=== PATIENT | female | born 1970 | race Caucasian/White ===

== ENCOUNTER 2020-02-01 15:25 | Outpatient (CLI) | payer OTHER, SELFPAY ==
[2020-02-01 17:53] LABS: Free T4 Free Thyroxine 1.26 ng/mL (0.78-2.19)
[2020-02-04 06:08] LABS: Vitamin D 1,25 (OH)2 Total 46 pg/mL (18-72); Vitamin D2 1,25 (OH)2 <8 pg/mL; Vitamin D3 1,25 (OH)2 46 pg/mL
[2020-02-04 13:12] LABS: Triiodothyronine T3 Free 2.5 pg/mL (2.3-4.2)
[2020-02-04 16:32] LABS: Testosterone Free 5.1 pg/mL (0.1-6.4); Testosterone Total 37 ng/dL (2-45)
[2020-02-06 11:43] LABS: T3 Reverse 22 ng/dL (8-25)
== END 2020-02-01 15:26 | disposition home or self-care (01) ==
LOC: ANHBWCLAB 15:29
PROVIDERS: PCP Family Medicine; Visit Provider Family Medicine
DX: R79.89 Other specified abnormal findings of blood chemistry (principal); G25.81 Restless legs syndrome; L68.0 Hirsutism; E03.9 Hypothyroidism, unspecified; E07.9 Disorder of thyroid, unspecified; E28.2 Polycystic ovarian syndrome; Z79.899 Other long term (current) drug therapy; N99.89 Other postprocedural complications and disorders of genitourinary system; Z98.51 Tubal ligation status
CPT/HCPCS: 36415; 82652; 84402; 84403; 84439; 84443; 84481; 84482

== ENCOUNTER 2020-03-29 11:22 | Outpatient (CLI) | payer OTHER, SELFPAY ==
[2020-03-29 20:06] LABS: Free T4 Free Thyroxine 1.79 ng/mL (0.78-2.19); Vitamin D 25 Hydroxy 25.1 ng/mL
[2020-04-01 11:19] LABS: T3 Reverse 26 ng/dL (8-25)
== END 2020-03-29 11:23 | disposition home or self-care (01) ==
LOC: ANHBWCLAB 11:23
PROVIDERS: PCP Family Medicine; Visit Provider Family Medicine
DX: E53.8 Deficiency of other specified B group vitamins (principal); E05.90 Thyrotoxicosis, unspecified without thyrotoxic crisis or storm; R79.89 Other specified abnormal findings of blood chemistry; G25.81 Restless legs syndrome
CPT/HCPCS: 36415; 82306; 82607; 82746; 84439; 84443; 84481; 84482

== ENCOUNTER 2020-08-29 14:41 | Emergency (ER) | payer OTHER, SELFPAY ==
--- NOTE | ~2020-08-29 | XR_ITS ---
EXAMINATION: XR chest 2V DATE: 08/29/2020 15:45 INDICATION: Chest pain. TECHNIQUE: frontal and lateral views of the chest were obtained. COMPARISON: Chest radiograph dated 01/20/2019 FINDINGS: The lungs remain clear with no focal airspace opacities, pulmonary edema, pleural effusion or pneumot horax. The cardiomediastinal silhouette is normal. Moderate thoracic spondylosis. IMPRESSION: 1. No acute cardiopulmonary disease. Reviewed, dictated and finalized at location A.
--- NOTE | 2020-08-29 14:53 | ECG_ITS ---
Measurements Intervals [place] Rate: 79 P: 40 GA: 173 QRS: 29 QRSD: 94 T: 22 QT: 356 QTc: 410 Interpretive Statements SINUS RHYTHM NONSPECIFIC T-WAVE ABNORMALITY- ANT/INF LEADS BASELINE WANDER- I, II BORDERLINE ECG Electronically Signed On 08-29-2020 15:01:06 CDT by Valentino Mensah D.O.
[2020-08-29 15:14] VITALS: BP 129/86; PULSE 77; RESP 14; TEMP 36.8; O2SAT 100
[2020-08-29] MEDS: ASPIRIN 81 MG CHEWABLE TABLET 324 MG PO (15:33)
[2020-08-29] MEDS: MECLIZINE HCL 25 MG TABLET PO (16:26)
[2020-08-29 16:41] LABS: Basophils Absolute Auto 0.1 K/mm3 (0.0-0.1); Basophils Percent Auto 0.6 % (0.2-1.2); Eosinophils Absolute Auto 0.2 K/mm3 (0-0.3); Eosinophils Percent Auto 2.3 % (0-4.4); Hemoglobin 13.8 g/dL (12.0-15.0); Immature Granulocyte Absolute 0.03 K/mm3 (0.00-0.031); Immature Granulocyte Percent A 0.4 % (0-0.5); Lymphocytes Absolute Auto 2.93 K/mm3 (0.9-3.2); Lymphocytes Percent Auto 37.9 % (18.3-44.2); Mean Corpuscular HGB Conc 32.9 g/dl (32-36); Mean Corpuscular Hemoglobin 30.7 pg (26-34); Mean Corpuscular Volume 93.5 fl (80-100); Mean Platelet Volume 9.8 fl (7.4-10.4); Monocytes Absolute Auto 0.6 K/mm3 (0.1-0.6); Monocytes Percent Auto 8.2 % (2.6-8.5); Neutrophils Absolute Auto 3.9 K/mm3 (1.3-6.7); Neutrophils Percent Auto 50.6 % (45.5-73.1); Platelet Count Result 246 k/mm3 (150-375); Red Blood Count 4.49 M/mm3 (4.2-5.4); Red Cell Distribution Width 12.6 % (11.5-14.5); White Blood Count 7.7 K/mm3 (4.5-10.0)
[2020-08-29 16:45] VITALS: BP 153/105; PULSE 76; RESP 18; O2SAT 96
[2020-08-29 16:53] LABS: Prothrombin Time 13.3 Seconds (11.1-14.7)
[2020-08-29 16:55] LABS: Partial Thromboplastin Time 28.4 SECONDS (22.3-36.8)
[2020-08-29 17:07] LABS: Anion Gap 10 mmol/L (8-16); Blood Urea Nitrogen 8 mg/dL (7-17); Calcium 9.6 mg/dL (8.4-10.2); Carbon Dioxide 22 mmol/L (22-30); Chloride 109 mmol/L (98-107); Estimated CRCL calculation 72 ml/min; Estimated Glomerular Filt Rate 52; Glucose 84 mg/dL (65-105); Potassium 4.1 mmol/L (3.4-5.0); Sodium 141 mmol/L (137-145)
[2020-08-29 17:17] LABS: Troponin I < 0.012 ng/mL (0.000-0.034)
--- NOTE | 2020-08-29 17:25 | ED.CHESTPAIN ---
HPI - Chest Pain General Chief Complaint: Chest Pain Stated Complaint: CP, hx aortic aneurism Time Seen by Provider: 08/29/20 14:57 History of Present Illness HPI narrative: Patient is a 50-year-old female who presents ER with chest pain. Pressure center chest. No runny nose or sore throat or productive cough. No dyspnea. Has history of DVT resulting in PE back in February 2020. She has been on apixaban since then. Patient had negative cardiac stress test 3 weeks ago. No trauma. No fevers or chills or sweats. Cannot identify any aggravating or alleviating factors. Pain began this morning. Related Data Allergies Allergy/AdvReac Type Severity Reaction Status Date / Time No Known Allergies Allergy Verified 08/29/20 13:35 Review of Systems Review of Systems: All systems reviewed & are unremarkable except as noted in HPI and below Constitutional: Constitutional: Denies chills, Denies fever(s) and Denies weakness ENT: Denies nasal congestion and Denies sore throat Cardiovascular: Cardiovascular: Reports chest pain, Denies rapid heart rate and Denies radiating jaw, neck or arm pain Respiratory: Respiratory: Denies cough, Denies dyspnea and Denies wheezing Gastrointestinal: Gastrointestinal: Denies nausea and Denies vomiting PMFSH Past Medical History Medical History Anxiety Former smoker Headache, migraine Hypothyroid 04/01/2020 reverse T3 to high Other termite renewal inspector (current) drug therapy Pulmonary embolism Surgical History Surgical History H/O resection of rectum H/O thyroidectomy Family History Family History Mother Cerebrovascular accident DVT (deep venous thrombosis) Social History Social History Smoking packs per day: 1 Smoking cigarettes per day: 20.0 Years smoked: 19 Smoking pack-years: 19.00 Smoking status: Former smoker Tobacco type: cigarettes Alcohol intake: current Drinks per week: 0 Substance use: never Exam Narrative: Exam Narrative: GENERAL: Well-appearing, well-nourished, and in no acute distress. HEAD: Normocephalic, atraumatic. EYES: PERRL and EOMI. ENT: Mucous membranes moist. CHEST: Clear to auscultation. No respiratory distress. HEART: Regular rate and rhythm. Normal peripheral pulses. ABDOMEN: Soft, nontender, nondistended. EXTREMITIES: Normal range of motion. No edema. SKIN: Warm, dry, no rash. NEURO: Alert and oriented x3. Course Course Emergency Course: Patient resting comfortably. Informed of results. Is not felt to be PE or cardiac related. May be related to some anxiety that patient has. Vital Signs Vital signs: Vital Signs Temperature 98.2 F 08/29/20 15:14 Pulse Rate 77 08/29/20 15:14 Respiratory Rate 14 08/29/20 15:14 Blood Pressure 129/86 08/29/20 15:14 Pulse Oximetry 100 08/29/20 15:14 Temperature 98.2 F 08/29/20 15:14 Pulse Rate 76 08/29/20 16:45 Respiratory Rate 18 08/29/20 16:45 Blood Pressure 153/105 H 08/29/20 16:45 Pulse Oximetry 96 08/29/20 16:45 MDM - Chest Pain Lab Data Result diagrams: 08/29/20 16:31 08/29/20 16:31 Labs: Lab Results 08/29/20 08/29/20 08/29/20 Range/Units 16:31 16:31 16:31 WBC 7.7 (4.5-10.0) K/mm3 RBC 4.49 (4.2-5.4) M/mm3 Hgb 13.8 (12.0-15.0) g/dL Hct 42.0 (37.0-47.0) % MCV 93.5 (80-100) fl MCH 30.7 (26-34) pg MCHC 32.9 (32-36) g/dl RDW 12.6 (11.5-14.5) % Plt Count 246 (150-375) k/mm3 MPV 9.8 (7.4-10.4) fl Immature Gran % (Auto) 0.4 (0-0.5) % Neut % (Auto) 50.6 (45.5-73.1) % Lymph % (Auto) 37.9 (18.3-44.2) % [place] % (Auto) 8.2 (2.6-8.5) % Eos % (Auto) 2.3 (0-4.4) % Baso % (Auto) 0.6 (0.2-1.2) % Lymph # (Auto) 2.93 (0.9-3.2) K/mm3
== END 2020-08-29 17:41 | disposition home or self-care (01) ==
PROVIDERS: Emergency Provider Emergency Medicine; PCP Family Medicine
DX: R07.9 Chest pain, unspecified (principal); E03.9 Hypothyroidism, unspecified; Z87.891 Personal history of nicotine dependence; Z79.01 Long term (current) use of anticoagulants; Z86.711 Personal history of pulmonary embolism
CPT/HCPCS: 36415; 71046; 80048; 84484; 85025; 85610; 85730; 93005; 99284; A9270

== ENCOUNTER 2020-12-01 08:48 | Outpatient (CLI) | payer OTHER, SELFPAY ==
--- NOTE | ~2020-12-01 | MM_ITS ---
EXAMINATION: MM screening randy BI w areli HISTORY: Screening TECHNIQUE: Craniocaudal and mediolateral oblique 3-D tomosynthesis images were obtained and synthetic 2-D images were generated. CAD analysis was submitted and interpreted. COMPARISON: No prior mammogram is available for comparison at this institution BREAST PARENCHYMAL COMPOSITION: The breasts are heterogenously dense, which may obscure small masses. FINDINGS: There are multiple bilateral breast nodules scattered throughout both breasts. Many of thes e are obscured by fibroglandular tissue. No suspicious calcifications or architectural distortion. IMPRESSION: 1. Multiple bilateral breast nodules scattered throughout both breasts. 2. Additional mammographic views and possible breast ultrasound are recommended. BI-RADS Category 0: Incomplete: Needs additional imaging evaluation. Reviewed, dictated and finalized at location A. IMPRESSION: 1. Multiple bilateral breast nodules scattered throughout both breasts. 2. Additional mammographic views and possible breast ultrasound are recommended . BI-RADS Category 0: Incomplete: Needs additional imaging evaluation.
== END 2020-12-01 08:49 | disposition home or self-care (01) ==
LOC: ANHIMG 08:51
PROVIDERS: Visit Provider Emergency Medicine
DX: Z12.31 Encounter for screening mammogram for malignant neoplasm of breast (principal); R92.8 Other abnormal and inconclusive findings on diagnostic imaging of breast
CPT/HCPCS: 77063; 77067

== ENCOUNTER 2021-01-30 09:06 | Outpatient (CLI) | payer OTHER, SELFPAY ==
--- NOTE | ~2021-01-30 | US_ITS ---
EXAMINATION: US abdomen complete EXAM DATE: 01/30/2021 09:41 INDICATION: Liver disease. TECHNIQUE: Multiple grayscale and Doppler images of the complete abdomen were obtained (by a technolo gist who performed the scan) and subsequently reviewed. There is no prior study for comparison. FINDINGS: The abdominal aorta is normal in caliber. Visualized portion IVC is patent. The pancreatic head a nd body are normal in appearance. The pancreatic tail is not visualized. There is echogenic liver parenchyma with poor penetration, hepatic steatosis. There are no focal david er lesions identified. There is no evidence of intrahepatic biliary duct dilation. Portal venous f low was seen in the hepatopedal, normal direction and has normal Doppler waveform. Common bile duct measures 8 mm, which is normal. The gallbladder fossa is unremarkable. Right kidney: There is normal contour and echogenicity. It measures 11.3 x 6.2 x 5.3 centimeters. There are no focal renal lesions identified. There is no hydronephrosis. Left kidney: There is normal contour and echogenicity. It measures 11.3 x 5.7 x 5.8 centimeters. T here are no focal renal lesions identified. There is no hydronephrosis. The spleen measures 10.7 centimeters and is morphologically normal. IMPRESSION: 1. Hepatic steatosis. Reviewed, dictated and finalized at location B. RITY ASSISTANT IMPRESSION: 1. Hepatic steatosis.
== END 2021-01-30 09:07 | disposition home or self-care (01) ==
LOC: ANHIMG 09:08
PROVIDERS: PCP Emergency Medicine; Visit Provider Emergency Medicine
DX: K76.0 Fatty (change of) liver, not elsewhere classified (principal)
CPT/HCPCS: 76700

== ENCOUNTER 2023-06-04 16:02 | Outpatient (CLI) | payer OTHER, SELFPAY ==
--- NOTE | ~2023-06-04 | MM_ITS ---
EXAMINATION: MM screening randy BI w areli HISTORY: Screening TECHNIQUE: Craniocaudal and mediolateral oblique 3-D tomosynthesis images were obtained and synthetic 2-D images were generated. CAD analysis was submitted and interpreted. COMPARISON: No prior mammogram is available for comparison at this institution. BREAST PARENCHYMAL COMPOSITION: Not dense: There are scattered areas of fibroglandular density. FINDINGS: There are developing bilateral masses in the upper outer quadrant of both breasts. There ar e no suspicious calcifications or architectural distortion. IMPRESSION: 1. Developing bilateral breast masses. 2. Additional mammographic views and possible breast ultrasound are recommended. BI-RADS Category 0: Incomplete: Needs additional imaging evaluation. Reviewed, dictated and finalized at location B. IMPRESSION: 1. Developing bilateral breast masses. 2. Additional mammographic views and possible breast ultrasound are recommended . BI-RADS Category 0: Incomplete: Needs additional imaging evaluation.
== END 2023-06-04 16:03 | disposition home or self-care (01) ==
PROVIDERS: PCP Family Medicine; Visit Provider Family Medicine
DX: Z12.31 Encounter for screening mammogram for malignant neoplasm of breast (principal); R92.8 Other abnormal and inconclusive findings on diagnostic imaging of breast
CPT/HCPCS: 77063; 77067

== ENCOUNTER 2023-06-20 12:36 | Outpatient (CLI) | payer OTHER, SELFPAY ==
--- NOTE | ~2023-06-20 | MMUS_ITS ---
EXAMINATION: MM diagnostic randy BI w areli, US breast BI limited HISTORY: Developing bilateral breast masses reported on June 04, 2023 screening mammogram TECHNIQUE: Additional 3-D tomosynthesis images of both breasts were performed and synthetic 2-D image s were generated. CAD analysis was submitted and interpreted. High resolution bilateral upper outer a nd lower-outer quadrant breast ultrasound was performed. COMPARISON: June 04, 2023 bilateral screening mammogram FINDINGS: MAMMOGRAPHIC FINDINGS: Multiple bilateral scattered low-density circumscribed opacities in one larger approximately 2.4 cm u pper outer quadrant left breast opacity is suggested primarily in the outer quadrants of the breasts. These are low-density and circumscribed, most likely cysts. Biopsy marker is noted in the upper outer quadrant of the right breast. There is a history of prior b enign right breast biopsy. No suspicious mass or architectural distortion, malignant calcification and skin thickening or retrac tion is evident. ULTRASOUND: There are scattered right breast cysts, the largest situated at 8:00 7 cm from the nipple measuring u p to 6.5 mm. There are scattered left breast cysts as well, the largest at 1:00 6 cm from the nipple, measuring up to 2.7 cm. There is a circumscribed hyperechoic 4.7 x 8.5 mm lesion in the left breast at 12:00 3 cm from the ni pple consistent with benign lipoma. No suspicious mass or shadowing is detected. IMPRESSION: 1. Benign findings 2. Routine annual mammographic screening is recommended BI-RADS Category 2: Benign finding(s). Reviewed, dictated and finalized at location A. IMPRESSION: 1. Benign findings 2. Routine annual mammographic screening is recommended BI-RADS Category 2: Benign finding(s).
== END 2023-06-20 12:37 | disposition home or self-care (01) ==
PROVIDERS: PCP Family Medicine; Visit Provider Family Medicine
DX: R92.8 Other abnormal and inconclusive findings on diagnostic imaging of breast (principal)
CPT/HCPCS: 76642; 77062; 77066; G0279

== ENCOUNTER 2024-01-08 10:28 | Emergency (ER) | payer OTHER, SELFPAY ==
--- NOTE | ~2024-01-08 | US_ITS ---
US transvaginal Ordering provider: Josephine Lloyd APRN History: . vaginal bleeding . Comparison: None. Technique: Transabdominal and endovaginal ultrasound of the pelvis (Doppler ultrasound interrogation techniques used as needed for this exam.) FINDINGS: CERVIX: Nabothian cysts UTERUS: Measures 8.7x4x4.5 cm in length which is within normal limits and is anteverted. No myometri al masses. ENDOMETRIUM: Normal in thickness measuring 9 mm. heterogenous area in the endometrium in the lower s egment. CUL DE SAC: No free fluid. RIGHT OVARY: not seen. LEFT OVARY: not seen. ADNEXA: Normal. No mass. IMPRESSION: Nabothian cysts, highly suggestive endometrial polyp. further evaluation advised.endometrial Ca shou ld be considered. Otherwise, normal pelvic ultrasound. Reviewed, dictated and finalized at location A. MIXER IMPRESSION: Nabothian cysts, highly suggestive endometrial polyp. further evaluation advis ed.endometrial Ca should be considered. Otherwise, normal pelvic ultrasound.
[2024-01-08 10:30] VITALS: BP 149/99; PULSE 86; RESP 16; TEMP 36.6; O2SAT 100
[2024-01-08 12:34] LABS: Basophils Absolute Auto 0.1 K/mm3 (0.0-0.1); Eosinophils Absolute Auto 0.1 K/mm3 (0-0.3); Eosinophils Percent Auto 1.8 % (0-4.4); Hematocrit 41.1 % (37.0-47.0); Hemoglobin 14.6 g/dL (12.0-15.0); Immature Granulocyte Absolute 0.03 K/mm3 (0.00-0.031); Immature Granulocyte Percent A 0.4 % (0-0.5); Immature Platelet Fraction Pct 3.3 % (0.9-11.2); Mean Corpuscular HGB Conc 35.5 g/dl (32-36); Mean Corpuscular Hemoglobin 31.8 pg (26-34); Mean Corpuscular Volume 89.5 fl (80-100); Mean Platelet Volume 9.7 fl (7.4-10.4); Monocytes Absolute Auto 0.4 K/mm3 (0.1-0.6); Monocytes Percent Auto 5.2 % (2.6-8.5); Neutrophils Absolute Auto 4.3 K/mm3 (1.3-6.7); Neutrophils Percent Auto 60.6 % (45.5-73.1); Platelet Count Result 140 k/mm3 (150-375); Red Blood Count 4.59 M/mm3 (4.2-5.4); Red Cell Distribution Width 13.4 % (11.5-14.5); White Blood Count 7.1 K/mm3 (4.5-10.0)
--- NOTE | 2024-01-08 12:40 | ED.FEMALEGU ---
HPI - Female Genitourinary General Chief complaint: Vaginal Bleeding <Josephine Lloyd APRN - Last Filed: 01/08/24 12:42> Stated complaint: vaginal bleeding <Josephine Lloyd APRN - Last Filed: 01/08/24 12:42> Time Seen by Provider: 01/08/24 12:35 <Josephine Lloyd APRN - Last Filed: 01/08/24 12:42> Focused HPI: Patient is a 53-year-old female who presents to the ER with vaginal bleeding. She reports she is postmenopausal and has not had any vaginal bleeding since 2021. Patient reports she thought she had a yeast infection couple of days ago so she tried to treat with Monistat but it did not help relieve her symptoms. She reports this morning she was blotting her vaginal area and it was just blood. patient reports she called her primary care provider who advised her to come into the ER for evaluation. She denies any shortness of breath, lower extremity swelling, or chest pain. Patient does endorse lower abdominal cramping. She reports she has a history of fatty liver disease and type 2 diabetes. Patient reports she still has all of her female organs. GENERAL: Well-appearing, well-nourished, and in no acute distress. HEAD: Normocephalic, atraumatic. CHEST: Clear to auscultation. ?No respiratory distress. HEART: Regular rate and rhythm.? NEURO: ?Alert and oriented x3. Patient screened in triage and initial orders placed.? ?Additional care and disposition to be based upon?diagnostic testing and treatment. <Josephine Lloyd APRN - Last Filed: 01/08/24 12:42> Source: patient <Amadou Worthington PA-C - Last Filed: 01/09/24 01:41> Mode of arrival: ambulatory <PAZ Hernandez Last Filed: 01/09/24 01:41> Limitations: no limitations <PAZ Hernandez Last Filed: 01/09/24 01:41> History of Present Illness HPI Narrative: Agree triage note above <PAZ Hernandez Last Filed: 01/09/24 01:41> Related Data Allergies/Adverse reactions: Allergies Allergy/AdvReac Type Severity Reaction Status Date / Time No Known Allergies Allergy Verified 09/19/20 10:05 <Josephine Lloyd APRN - Last Filed: 01/08/24 12:42> Review of Systems Review of Systems: All systems as dictated in HPI <Amadou Worthington PA-C - Last Filed: 01/09/24 01:41> PMFSH Past Medical History Medical History: Medical History Anxiety Former smoker Headache, migraine Hypothyroid 04/01/2020 reverse T3 to high Other long distance operator (current) drug therapy Pulmonary embolism <Josephine Lloyd APRN - Last Filed: 01/08/24 12:42> Surgical History Surgical History: Surgical History H/O resection of rectum H/O thyroidectomy <Josephine Lloyd APRN - Last Filed: 01/08/24 12:42> Family History Family History: Family History Mother Cerebrovascular accident DVT (deep venous thrombosis) <Josephine Lloyd APRN - Last Filed: 01/08/24 12:42> Social History Social History: Social History Smoking packs per day: 1 Smoking cigarettes per day: 20.0 Years smoked: 19 Smoking pack-years: 19.00 Smoking status: Former smoker Tobacco type: cigarettes Alcohol intake: current Drinks per week: 0 Substance use: never <Josephine Lloyd APRN - Last Filed: 01/08/24 12:42> Exam Narrative: GENERAL: Well-appearing, well-nourished, and in no acute distress. HEAD: Normocephalic, atraumatic. EYES: PERRLA and EOMI. ENT: Nares clear, no rhinorrhea or epistaxis. Mucous membranes moist. Oropharynx without tonsillar hypertrophy exudate or other lesions. NECK: Supple. No adenopathy or masses. CHEST: No respiratory distress. Clear to auscultation. No wheezes rales or rhonchi HEART: Regular rate and rhythm. No murmur heard. Normal peripheral pulses. ABDOMEN: Soft, nontender, nondistended, normal active bowel sounds. MSK: Normal range of motion. No edema. SKIN: Warm, dry, no rash. NEURO: Alert and oriented x4. No focal deficits. PSYCH: Normal mood and affect. <Amadou Worthington PA-C - Last Filed: 01/09/24 01:41> Course Consultations Consultation #1: Spoke with Dr. Liao. He will have the patient follow-up in clinic this week. <Amadou Worthington PA-C - Last Filed: 01/09/24 01:41> Vital Signs Vital signs: Vital Signs Temperature 97.8 F 01/08/24 10:30 Pulse Rate 86 01/08/24 10:30 Respiratory Rate 16 01/08/24 10:30 Blood Pressure 149/99 H 01/08/24 10:30 Pulse Oximetry 100 01/08/24 10:30 Oxygen Delivery Room Air 01/08/24 10:30 Temperature 97.8 F 01/08/24 10:30 Pulse Rate 77 01/08/24 16:17 Respiratory Rate 18 01/08/24 16:17 Blood Pressure 138/88 01/08/24 16:17 Pulse Oximetry 97 01/08/24 16:17 Oxygen Delivery Room Air 01/08/24 10:30 <Josephine Lloyd, ALESSANDRA - Last Filed: 01/08/24 12:42> Vital Signs Temperature 97.8 F 01/08/24 10:30 Pulse Rate 86 01/08/24 10:30 Respiratory Rate 16 01/08/24 10:30 Blood Pressure 149/99 H 01/08/24 10:30 Pulse Oximetry 100 01/08/24 10:30 Oxygen Delivery Room Air 01/08/24 10:30 Temperature 97.8 F 01/08/24 10:30 Pulse Rate 77 01/08/24 16:17 Respiratory Rate 18 01/08/24 16:17 Blood Pressure 138/88 01/08/24 16:17 Pulse Oximetry 97 01/08/24 16:17 Oxygen Delivery Room Air 01/08/24 10:30 <Amadou Worthington PA-C - Last Filed: 01/09/24 01:41> MDM - Female Genitourinary MDM Narrative Medical decision making narrative: This is a 53-year-old female who presents to the ED for chief complaint of vaginal bleeding. Vitals are normal. Patient is postmenopausal. Exam is benign overall. No abdominal tenderness. Lab work shows normal CBC. Coags are unremarkable. CMP shows elevated glucose but otherwise unremarkable. Urinalysis shows elevated specific gravity with protein and glucose present. There is 1+ leuk esterase, greater than 100 RBCs and 21-50 whites. She is not have any urinary symptoms to indicate a acute UTI. Culture pending. Transvaginal ultrasound: IMPRESSION: Nabothian cysts, highly suggestive endometrial polyp. further evaluation advised.endometrial Ca should be considered. Otherwise, normal pelvic ultrasound Was able to speak with Dr. Liao (OBGYN) but as the patient currently does not have any gynecological care. That he is aware of the workup and will follow-up with the patient this week. Patient will be discharged in stable condition. Supportive measures discussed and return precautions given. Patient is understanding and agreeable with plan for discharge with PCP/Gyne follow-up. <Amadou Worthington PA-C - Last Filed: 01/09/24 01:41> Lab Data Result diagrams: 01/08/24 12:22 01/08/24 12:22 <Josephine Lloyd APRN - Last Filed: 01/08/24 12:42> Labs: Lab Results 01/08/24 Range/Units 12:22 WBC 7.1 (4.5-10.0) K/mm3 RBC 4.59 (4.2-5.4) M/mm3 Hgb 14.6 (12.0-15.0) g/dL Hct 41.1 (37.0-47.0) % MCV 89.5 (80-100) fl MCH 31.8 (26-34) pg MCHC 35.5 (32-36) g/dl RDW 13.4 (11.5-14.5) % Plt Count 140 L (150-375) k/mm3 MPV 9.7 (7.4-10.4) fl Immature Gran % (Auto) 0.4 (0-0.5) % Neut % (Auto) 60.6 (45.5-73.1) % Lymph % (Auto) 31.0 (18.3-44.2) % [place] % (Auto) 5.2 (2.6-8.5) % Eos % (Auto) 1.8 (0-4.4) % Baso % (Auto) 1.0 (0.2-1.2) % Lymph # (Auto) 2.20 (0.9-3.2) K/mm3 [place] # (Auto) 0.4 (0.1-0.6) K/mm3 Eos # (Auto) 0.1 (0-0.3) K/mm3 Baso # (Auto) 0.1 (0.0-0.1) K/mm3 Abs Immat Gran (auto) 0.03 (0.00-0.031) K/mm3 Absolute Neuts (auto) 4.3 (1.3-6.7) K/mm3 Absolute Nucleated RBC 0.000 (0.0-0.012) K/mm3 Nucleated RBC % 0.0 (0.0-0.2) % % Immature Plt Fraction 3.3 (0.9-11.2) % PT 15.1 H (11.1-14.7) Seconds INR 1.1 APTT 29.9 (22.3-36.8) Seconds Sodium 136 L (137-145) mmol/L Potassium 4.1 (3.4-5.0) mmol/L Chloride 100 (98-107) mmol/L Carbon Dioxide 25 (22-30) mmol/L Anion Gap 11 (4-12) mmol/L BUN 10 (7-17) mg/dL Creatinine 0.90 (0.7-1.0) mg/dL Estim Creat Clear Calc Not Reportable Estimated GFR > 60 (59 - ) Glucose 300 H (65-110) mg/dL Calcium 9.4 (8.4-10.2) mg/dL Total Bilirubin 1.1 (0.2-1.3) mg/dL AST 116 H (14-36) U/L ALT 124 H (6-35) U/L Alkaline Phosphatase 86 (38-126) U/L Total Protein 9.0 H (6.3-8.2) g/dL Albumin 4.5 (3.5-5.1) g/dL Lipase 242 (23-300) U/L Urine Color Red H (Yellow) Urine Appearance Turbid H (Clear) Urine pH 5.5 (5.0-9.0) Ur Specific [place] 1.045 H (1.001-1.035) Urine Protein 2+ H (Negative) mg/dL Urine Glucose (UA) 3+ H (Negative) mg/dL Urine Ketones Negative (Negative) mg/dL Ur Blood (Man) 3+ H (Negative) Urine Nitrate Negative (Negative) Urine Bilirubin TNP Urine Urobilinogen 0.2 (<2.0) mg/dL Add Ur Microanalysis Reviewed Leukocyte Esterase Rfl 1+ H (Negative) LORRI/UL Urine RBC >100 H (0-2) /hpf Urine WBC 21-50 H (0-3) /hpf Ur Squamous Epith Cells Moderate (Few) /hpf Urine Bacteria None seen /hpf Urine Casts 0-2 <Josephine Lloyd, ZONING ADMINISTRATOR - Last Filed: 01/08/24 12:42> Lab Results 01/08/24 Range/Units 12:22 WBC 7.1 (4.5-10.0) K/mm3 RBC 4.59 (4.2-5.4) M/mm3 Hgb 14.6 (12.0-15.0) g/dL Hct 41.1 (37.0-47.0) % MCV 89.5 (80-100) fl MCH 31.8 (26-34) pg MCHC 35.5 (32-36) g/dl RDW 13.4 (11.5-14.5) % Plt Count 140 L (150-375) k/mm3 MPV 9.7 (7.4-10.4) fl Immature Gran % (Auto) 0.4 (0-0.5) % Neut % (Auto) 60.6 (45.5-73.1) % Lymph % (Auto) 31.0 (18.3-44.2) % [place] % (Auto) 5.2 (2.6-8.5) % Eos % (Auto) 1.8 (0-4.4) % Baso % (Auto) 1.0 (0.2-1.2) % Lymph # (Auto) 2.20 (0.9-3.2) K/mm3 [place] # (Auto) 0.4 (0.1-0.6) K/mm3 Eos # (Auto) 0.1 (0-0.3) K/mm3 Baso # (Auto) 0.1 (0.0-0.1) K/mm3 Abs Immat Gran (auto) 0.03 (0.00-0.031) K/mm3 Absolute Neuts (auto) 4.3 (1.3-6.7) K/mm3 Absolute Nucleated RBC 0.000 (0.0-0.012) K/mm3 Nucleated RBC % 0.0 (0.0-0.2) % % Immature Plt Fraction 3.3 (0.9-11.2) % PT 15.1 H (11.1-14.7) Seconds INR 1.1 APTT 29.9 (22.3-36.8) Seconds Sodium 136 L (137-145) mmol/L Potassium 4.1 (3.4-5.0) mmol/L Chloride 100 (98-107) mmol/L Carbon Dioxide 25 (22-30) mmol/L Anion Gap 11 (4-12) mmol/L BUN 10 (7-17) mg/dL Creatinine 0.90 (0.7-1.0) mg/dL Estim Creat Clear Calc Not Reportable Estimated GFR > 60 (59 - ) Glucose 300 H (65-110) mg/dL Calcium 9.4 (8.4-10.2) mg/dL Total Bilirubin 1.1 (0.2-1.3) mg/dL AST 116 H (14-36) U/L ALT 124 H (6-35) U/L Alkaline Phosphatase 86 (38-126) U/L Total Protein 9.0 H (6.3-8.2) g/dL Albumin 4.5 (3.5-5.1) g/dL Lipase 242 (23-300) U/L Urine Color Red H (Yellow) Urine Appearance Turbid H (Clear) Urine pH 5.5 (5.0-9.0) Ur Specific [place] 1.045 H (1.001-1.035) Urine Protein 2+ H (Negative) mg/dL Urine Glucose (UA) 3+ H (Negative) mg/dL Urine Ketones Negative (Negative) mg/dL Ur Blood (Man) 3+ H (Negative) Urine Nitrate Negative (Negative) Urine Bilirubin TNP Urine Urobilinogen 0.2 (<2.0) mg/dL Add Ur Microanalysis Reviewed Leukocyte Esterase Rfl 1+ H (Negative) LORRI/UL Urine RBC >100 H (0-2) /hpf Urine WBC 21-50 H (0-3) /hpf Ur Squamous Epith Cells Moderate (Few) /hpf Urine Bacteria None seen /hpf Urine Casts 0-2 <Amadou Worthington PA-C - Last Filed: 01/09/24 01:41> Discharge Plan Discharge Clinical Impression: Abnormal vaginal bleeding, Abnormal urinalysis <Josephine Lloyd APRN - Last Filed: 01/08/24 12:42> Patient Disposition: Home, Self-Care <Josephine Lloyd APRN - Last Filed: 01/08/24 12:42> Condition: Stable <Josephine Lloyd APRN - Last Filed: 01/08/24 12:42> Instructions: Antibiotic Form <Josephine Lloyd APRN - Last Filed: 01/08/24 12:42> Additional Instructions: Your exam and imaging today are concerning for cysts and polyps that are causing the bleeding. There is also a possibility of endometrial cancer. This needs to be followed closely gynecology and clinic. Return to the ER if you have bleeding greater than 2 pads per hour. If you have any new or worsening symptoms please return to the ER for further evaluation. <Josephine Lloyd APRN - Last Filed: 01/08/24 12:42> Prescriptions: No Action losartan 25 mg tablet 25 mg PO DAILY Qty: 90 1RF Eliquis 5 mg tablet 5 mg PO BID Qty: 180 1RF topiramate [Topamax] 50 mg tablet 50 mg PO TID Qty: 270 1RF levothyroxine [Synthroid] 150 mcg tablet 150 mcg PO DAILY Qty: 90 1RF rizatriptan [Maxalt] 10 mg tablet 10 mg PO ONCE Qty: 90 1RF alprazolam 0.25 mg tablet 0.25 mg PO DAILY PRN (Reason: anxiety) Qty: 30 0RF <Josephine Lloyd APRN - Last Filed: 01/08/24 12:42> Follow-up/Referrals: Arturo Liao MD [Physician] - [facility],MD Carmelo [Primary Care Provider] - <Josephine Lloyd APRN - Last Filed: 01/08/24 12:42> Time of Disposition: 18:04 <Josephine Lloyd APRN - Last Filed: 01/08/24 12:42> 18:04 <Amadou Worthington PA-C - Last Filed: 01/09/24 01:41>
[2024-01-08 12:41] LABS: Alanine Aminotransferase 124 U/L (6-35); Albumin Level 4.5 g/dL (3.5-5.1); Alkaline Phosphatase 86 U/L (38-126); Anion Gap 11 mmol/L (4-12); Aspartate Amino Transferase 116 U/L (14-36); Bilirubin,Total 1.1 mg/dL (0.2-1.3); Blood Urea Nitrogen 10 mg/dL (7-17); Calcium 9.4 mg/dL (8.4-10.2); Carbon Dioxide 25 mmol/L (22-30); Chloride 100 mmol/L (98-107); Estimated Glomerular Filt Rate > 60; Glucose 300 mg/dL (65-110); Potassium 4.1 mmol/L (3.4-5.0); Sodium 136 mmol/L (137-145)
[2024-01-08 12:53] LABS: INR 1.1; Prothrombin Time 15.1 Seconds (11.1-14.7)
[2024-01-08 12:55] LABS: Partial Thromboplastin Time 29.9 Seconds (22.3-36.8)
[2024-01-08 12:58] LABS: Bacteria Urine None Seen /hpf; Need Manual Microscopic Reviewed; Non Pathogenic Casts 0-2; RBC Urine >100 /hpf (0-2); Squamous Epithelial Cell Urine Moderate /hpf (Few); WBC Urine 21-50 /hpf (0-3)
[2024-01-08 13:00] LABS: Add Urine Microscopic? YES; Appearance Urine Turbid (Clear); Blood Urine 3+ (Negative); Color Urine Red (Yellow); Glucose Urine UA 3+ mg/dL (Negative); Ketones Urine Negative (Negative); Leukocyte Esterase Ur 1+ LEU/UL (Negative); Nitrate Urine Negative (Negative); Protein Urine 2+ mg/dL (Negative); Specific Grav Ur 1.045 (1.001-1.035); Urobilinogen Urine 0.2 mg/dL (<2.0); pH Urine 5.5 (5.0-9.0)
[2024-01-08 13:07] LABS: Lipase 242 U/L (23-300)
[2024-01-08] MEDS: ONDANSETRON HCL ODT 4 MG TABLET PO (13:43)
[2024-01-08 16:17] VITALS: BP 138/88; PULSE 77; RESP 18; O2SAT 97
== END 2024-01-08 18:30 | disposition home or self-care (01) ==
PROVIDERS: Emergency Medicine; Registered Nurse; Emergency Provider Physician Assistant; PCP Family Medicine
DX: N93.9 Abnormal uterine and vaginal bleeding, unspecified (principal); R82.998 Other abnormal findings in urine; F41.9 Anxiety disorder, unspecified; Z87.891 Personal history of nicotine dependence; Z86.711 Personal history of pulmonary embolism; E11.9 Type 2 diabetes mellitus without complications; E89.0 Postprocedural hypothyroidism
CPT/HCPCS: 36415; 76830; 80053; 81001; 83690; 85025; 85055; 85610; 85730; 87086; 99284; A9270

== ENCOUNTER 2024-01-23 00:54 | Day surgery (SDC) | payer OTHER, SELFPAY ==
[2024-01-15 12:27] VITALS: BMI 38.5
--- NOTE | 2024-01-15 12:28 | PC.NURSE ---
Report to the Outpatient Waiting Room, entrance under the green pavilion located off [facility], at time __07__ on date _01/23/24_. Planned Procedure Time: __09.? Time changes happen often and if your time is changed the preop area will call you the afternoon before. - You and your visitor will be asked to self-screen and do not enter if you have any COVID symptoms. Please call surgeon if you need to reschedule. - A mask is optional within the hospital at this time. Patients may have clear liquids (water, carbonated beverages, clear teas, apple juice) until 3 hours prior to surgery with a maximum of 20 ounces. - No food from midnight until time of surgery and no smoking. This includes no chewing gum, candy or mints. - Infants may have breast milk until 4 hours before surgery, formula 6 hours prior to surgery. - Children will be allowed to drink immediately following surgery.? If applicable, please bring a bottle or sippy cup to assist with drinking. Juice, water, soda, and popsicles are readily available.? For infants on formula, please bring formula the day of surgery.? Pacifiers are allowed. Take only the following medications with a SIP of water on the morning of surgery: __LEVOTHYROXINE, TOPARIMATE, HYDROXYZINE IF NEEDED DO NOT STOP ANY OF YOUR OTHER PRESCRIPTION MEDICATIONS PRIOR TO SURGERY EXCEPT THE FOLLOWING Medications to discontinue per physician NONE Date to take last dose Please no make-up, nail mongolian, hairspray, perfume, deodorant, or body powder the day of surgery.? No jewelry (including any body piercings) or valuables the day of surgery, leave them at home.? Please take a shower or bath the night before, or the morning of, surgery with an antibacterial soap.? Wear comfortable, loose fitting clothing.? Children are encouraged to wear pajamas. - Jewelry must be removed prior to entering the operating room.? Rings and piercings that are not removed may be cut off. - The hospital will not accept responsibility for valuables.? - Please leave all valuables, including medications, at home the day of surgery. If you are going home after surgery, a licensed minibus driver must drive you home.? - NO public transportation without another adult if you receive anesthesia. - We recommend that an adult stay with you for 24 hours following discharge. - We also recommend that you do not drive, make important decision, drink alcoholic beverages, or take any drugs that were not prescribed by your health care provider for at least 24 hours after your discharge time. For Pediatric surgeries, we recommend two adults accompany the child home. Follow any additional instructions given to you from your surgeon. Telephone instructions given to and asked if any additional questions and then verbalized understanding. Patient advised to call surgeon office or pre surgery nurse liaison [phone] if any additional questions.
--- NOTE | 2024-01-23 07:13 | WPDHPUPDATE1 ---
History and Physical Update Update Date/Time: 01/23/24 07:13 Assessment: 1. Postmenopausal bleeding Plan: 1. Hysteroscopy with uterine curettings History and Physical has been reviewed, including an updated exam of the patient. There are NO changes in the patient's condition. Risks, benefits, and alternatives have been discussed and questions answered. Patient agrees to proceed with procedure.
[2024-01-23 08:11] VITALS: BP 148/86; PULSE 81; TEMP 36.2; O2SAT 99; BMI 39.2
[2024-01-23] MEDS: LACTATED RINGERS 1,000 ML 30 ML IV CONT (08:14)
[2024-01-23] MEDS: ACETAMINOPHEN 500 MG TABLET 1000 MG PO (08:15)
--- NOTE | 2024-01-23 08:16 | SUR.PREOP ---
pt blood glucose via finger stick was 374, MD Whiteside notified and stat BMP was ordered. No insulin was given, told to follow up with PCP. Venous blood glucose was obtained and was 392.
[2024-01-23 08:24] LABS: Glucose Point of Care 374 mg/dl (65-105)
[2024-01-23 08:24] LABS: Glucose Point of Care 392 mg/dl (65-105)
[2024-01-23 08:24] LABS: Glucose Point of Care 374 mg/dl (65-105)
[2024-01-23 08:31] LABS: Anion Gap 8 mmol/L (4-12); Blood Urea Nitrogen 13 mg/dL (7-17); Calcium 9.5 mg/dL (8.4-10.2); Carbon Dioxide 26 mmol/L (22-30); Chloride 103 mmol/L (98-107); Estimated CRCL calculation 83 ml/min; Estimated Glomerular Filt Rate > 60; Glucose 378 mg/dL (65-110); Potassium 4.3 mmol/L (3.4-5.0); Sodium 137 mmol/L (137-145)
--- NOTE | 2024-01-23 08:47 | WPDANESEPPF ---
Anes - Initial Pre Proc Eval Procedure: Operation Date: 01/23/24 09:15 Proposed Procedures p Hysteroscopy Dilation and Curettage - Arturo Liao MD Date/Time: 01/23/24 08:47 Surgeon: Arturo Liao MD Pre Op Diagnosis: Post Menopausal Bleeding Patient Data Age: 53 Gender: F Height: 1.73 m Weight: 117.1 kg Last Vital Signs Temp 36.2 C L 01/23/24 08:11 Pulse 81 01/23/24 08:11 BP 148/86 H 01/23/24 08:11 Pulse Ox 99 01/23/24 08:11 O2 Del Method Room Air 01/23/24 08:11 Allergies Allergy/AdvReac Type Severity Reaction Status Date / Time buspirone AdvReac Severe Nausea and Verified 01/15/24 12:13 Vomiting Home Medications Medication Instructions Recorded Confirmed Type topiramate 50 mg tablet (Topamax) 50 mg PO TID #270 tabs 06/01/20 01/15/24 Rx levothyroxine 150 mcg tablet 150 mcg PO DAILY #90 tabs 08/17/20 01/15/24 Rx (Synthroid) losartan 25 mg tablet 25 mg PO DAILY #90 tabs 09/05/20 01/15/24 Rx atorvastatin 10 mg tablet (Lipitor) 10 mg PO QHS 01/13/24 01/15/24 History hydroxyzine HCl 25 mg tablet 25 mg PO BID PRN Anxiety 01/13/24 01/15/24 History metformin 500 mg tablet 500 mg PO BID 01/13/24 01/15/24 History Laboratory Tests 01/23/24 01/23/24 01/23/24 07:41 07:42 08:03 Sodium 137 mmol/L (137-145) Potassium 4.3 mmol/L (3.4-5.0) Chloride 103 mmol/L (98-107) Carbon Dioxide 26 mmol/L (22-30) Anion Gap 8 mmol/L (4-12) BUN 13 mg/dL (7-17) Creatinine 0.90 mg/dL (0.7-1.0) Estim Creat Clear Calc 83 ml/min Estimated GFR > 60 (59 - ) Glucose 378 H mg/dL (65-110) POC Capillary Glucose 374 H mg/dl 374 H mg/dl (65-105) (65-105) Calcium 9.5 mg/dL (8.4-10.2) 01/23/24 08:05 Sodium Potassium Chloride Carbon Dioxide Anion Gap BUN Creatinine Estim Creat Clear Calc Estimated GFR Glucose POC Capillary Glucose 392 H mg/dl (65-105) Calcium Patient hx anesthesia problems: none Family hx anesthesia problems: none Results Review: All pre-operative results and documents have been reviewed as part of the pre-operative evaluation. [facility] Past Medical History Medical History Anxiety Fatty liver Former smoker Headache, migraine Hypothyroid 04/01/2020 reverse T3 to high Other snf (current) drug therapy Pulmonary embolism Surgical History Surgical History H/O breast biopsy calcifications Benign H/O resection of rectum H/O thyroidectomy Hx of cholecystectomy Family History Family History Mother Cerebrovascular accident DVT (deep venous thrombosis) Social History Social History Smoking packs per day: 1 Smoking cigarettes per day: 20.0 Years smoked: 25 Smoking pack-years: 25.00 Smoking status: Former smoker Tobacco type: cigarettes Second hand tobacco smoke exposure: No Additional smoking assessment comments: 2022 Alcohol intake: never Drinks per week: 0 Substance use: never Substance use type: does not use Do You Feel Safe in your Home?: Yes Lack of Transportation: No Lack of Food: Never True Current Housing: Decline to Answer Concerned About Future Housing: Decline to Answer Difficulty Paying Gas/Electric Bills: Decline to Answer Difficulty Paying for Meds: Decline to Answer Currently Unemployed: Decline to Answer Education: Decline to Answer Difficulty w/ Childcare or Family Care: Decline to Answer Living arrangements: alone Additional living arrangements comments: Occupation/Education: unemployed Gender identity (if verbalized by the patient): Female Sexual Orientation (if Verbalized by the Patient): Straight or Heterosexual Anes - Eval Final PreProcedure Day of Procedure 01/23/24 08:47 Patient weight: morbidly obese Heart: regular rate and rhythm Lungs: clear to auscultation Airway: Mallampati scale class II Neurological: alert and oriented Last oral intake: >/= 8 hours ASA classification: IV Emergent: no Anesthetic plan: proceed Anesthesia type and monitoring: general GIVS and standard monitoring Results Review: All pre-operative results and documents have been reviewed as part of the pre-operative evaluation. Informed Consent: The patient's anesthetic plan and its attendant risks and benefits were discussed with the patient/family/POA. Questions were solicited and answers provided to the satisfaction of the patient/family/POA.
--- NOTE | 2024-01-23 09:14 | SUR.OPER ---
Fluid deficit 20 ml
--- NOTE | 2024-01-23 09:18 | W.PM.PROC2 ---
Procedure Note - Detailed Date of Procedure 01/23/24 Pre-op Diagnosis Post Menopausal Bleeding Post-op Diagnosis Same Procedure Performed 1. Hysteroscopy with uterine curettings Surgeon Arturo Liao MD Anesthesia MAC Findings Endometrial cavity atrophic. No evidence of polyps fibroids or hypervascularity. Description of Procedure Patient prepped in usual manner for this procedure. Cervix was dilated to allow the hysteroscope to be placed. Once this was placed the revaluation of the endometrial cavity and endocervical canal revealed findings as above with no abnormalities appreciated. Curettings were then obtained with minimal tissue. There was no significant bleeding and the patient was sent to the recovery room in stable condition. Estimated Blood Loss 10 Drains No Packing No Pathology Yes Complications No immediate complications Condition Stable Disposition PACU [facility] Billing Surgery - Charge Forward: Surgery Billing
[2024-01-23 09:24] VITALS: BP 141/79; PULSE 82; RESP 16; O2SAT 94
[2024-01-23 09:39] LABS: Glucose Point of Care 354 mg/dl (65-105)
[2024-01-23] MEDS: oxyCODONE HCL (*CRX) 5 MG TAB IR PO (09:50)
[2024-01-23 09:54] VITALS: BP 144/83; PULSE 72; RESP 18
[2024-01-23 10:20] VITALS: BP 134/84; PULSE 69; RESP 16
[2024-01-23] MEDS: ONDANSETRON INJ 4 MG/2 ML VIAL IV PUSH (10:46)
[2024-01-23 10:50] VITALS: BP 129/89; PULSE 68; RESP 16
[2024-01-23 11:16] VITALS: BP 135/82; PULSE 76; RESP 16
== END 2024-01-23 11:24 | disposition home or self-care (01) ==
PROVIDERS: Anesthesiology; PCP Family Medicine; Visit Provider Obstetrics & Gynecology
PROC: 0U5B8ZZ Destruction of Endometrium, Via Natural or Artificial Opening Endoscopic (ICD-10-PCS; CPT 58563; principal; 2024-01-23 09:15)
DX: N95.0 Postmenopausal bleeding (principal); N85.8 Other specified noninflammatory disorders of uterus; E89.0 Postprocedural hypothyroidism; Z87.891 Personal history of nicotine dependence; E66.01 Morbid (severe) obesity due to excess calories; Z68.39 Body mass index [BMI] 39.0-39.9, adult; Z86.711 Personal history of pulmonary embolism; Z79.899 Other long term (current) drug therapy
CPT/HCPCS: 58558; 36415; 80048; 82948; 88305; A9270; J2003; J2250; J2270; J2405; J2704; J7030; J7120

== ENCOUNTER 2024-01-23 18:14 | Emergency (ER) | payer OTHER, SELFPAY ==
[2024-01-23 18:42] VITALS: BP 139/90; PULSE 100; RESP 20; TEMP 36.4; O2SAT 99
[2024-01-23 18:58] LABS: Glucose Point of Care 251 mg/dl (65-105)
--- NOTE | 2024-01-23 20:26 | PC.NURSE ---
pt bedside glucose is 276
[2024-01-23] MEDS: SODIUM CHLORIDE 0.9% IV 1,000 ML 999 ML IV CONT (20:27)
[2024-01-23] MEDS: PROCHLORPERAZINE EDISYLATE 10 MG/2 ML VIAL IV PUSH (20:29)
[2024-01-23] MEDS: MAGNESIUM SULF 1 GM/D5W 100 ML 1 GM/100 ML BAG IVPB (20:30)
[2024-01-23 20:32] LABS: Basophils Absolute Auto 0.1 K/mm3 (0.0-0.1); Basophils Percent Auto 0.9 % (0.2-1.2); Eosinophils Absolute Auto 0.1 K/mm3 (0-0.3); Eosinophils Percent Auto 1.1 % (0-4.4); Hematocrit 41.1 % (37.0-47.0); Hemoglobin 13.8 g/dL (12.0-15.0); Immature Granulocyte Absolute 0.02 K/mm3 (0.00-0.031); Immature Granulocyte Percent A 0.3 % (0-0.5); Lymphocytes Absolute Auto 1.65 K/mm3 (0.9-3.2); Lymphocytes Percent Auto 24.8 % (18.3-44.2); Mean Corpuscular HGB Conc 33.6 g/dl (32-36); Mean Corpuscular Hemoglobin 30.4 pg (26-34); Mean Corpuscular Volume 90.5 fl (80-100); Mean Platelet Volume 9.3 fl (7.4-10.4); Monocytes Absolute Auto 0.3 K/mm3 (0.1-0.6); Monocytes Percent Auto 4.7 % (2.6-8.5); Neutrophils Absolute Auto 4.5 K/mm3 (1.3-6.7); Neutrophils Percent Auto 68.2 % (45.5-73.1); Platelet Count Result 142 k/mm3 (150-375); Red Blood Count 4.54 M/mm3 (4.2-5.4); Red Cell Distribution Width 13.5 % (11.5-14.5); White Blood Count 6.7 K/mm3 (4.5-10.0)
[2024-01-23] MEDS: dexAMETHasone SOD PHOS INJ 10 MG/ML 1 ML VIAL IV PUSH (20:32)
[2024-01-23 20:37] LABS: Glucose Point of Care 276 mg/dl (65-105)
[2024-01-23 20:45] LABS: Add Urine Microscopic? YES; Appearance Urine Cloudy (Clear); Bacteria Urine None Seen /hpf; Bilirubin Urine 1+ (Negative); Blood Urine 3+ (Negative); Color Urine Dark Yellow (Yellow); Glucose Urine UA 3+ mg/dL (Negative); Hyaline Casts Urine Present /lpf; Ketones Urine 1+ mg/dL (Negative); Leukocyte Esterase Ur Trace LEU/UL (Negative); Mucus Urine Present /lpf; Need Manual Microscopic Reviewed; Nitrate Urine Negative (Negative); Protein Urine 2+ mg/dL (Negative); RBC Urine >100 /hpf (0-2); Specific Grav Ur > 1.045 (1.001-1.035); Squamous Epithelial Cell Urine Few /hpf (Few); WBC Urine 21-50 /hpf (0-3); pH Urine 5.5 (5.0-9.0)
[2024-01-23 20:49] LABS: Alanine Aminotransferase 124 U/L (6-35); Albumin Level 4.2 g/dL (3.5-5.1); Alkaline Phosphatase 86 U/L (38-126); Anion Gap 8 mmol/L (4-12); Aspartate Amino Transferase 119 U/L (14-36); Bilirubin,Total 0.9 mg/dL (0.2-1.3); Blood Urea Nitrogen 11 mg/dL (7-17); Calcium 9.3 mg/dL (8.4-10.2); Carbon Dioxide 27 mmol/L (22-30); Chloride 103 mmol/L (98-107); Estimated CRCL calculation 94 ml/min; Estimated Glomerular Filt Rate > 60; Glucose 273 mg/dL (65-110); Potassium 3.9 mmol/L (3.4-5.0); Sodium 138 mmol/L (137-145)
--- NOTE | 2024-01-23 21:44 | ED_ITS ---
HPI - General Adult General Chief complaint: Nausea/Vomiting/Diarrhea Stated complaint: n/v Time Seen by Provider: 01/23/24 19:41 History of Present Illness HPI narrative: patient 53-year-old female who presents emergency department with chief complaint headache nausea. The patient reports he has prior history of migraines reports she really has not eaten today and reports she had a uterine biopsy and D and C earlier today by OBGYN patient reports that she has no focal neurologic deficits reports that she has chronic history of migraines and reports this is her typical type migraine the patient reports light bothers her eye reports he is nauseated the patient also has not eaten throughout the day and reports that her blood sugar was 66 the patient was given glucose and has no t required any IV dextrose Related Data Home Medications Medication Instructions Recorded Confirmed atorvastatin 10 mg tablet (Lipitor) 10 mg PO QHS 01/13/24 01/15/24 hydroxyzine HCl 25 mg tablet 25 mg PO BID PRN Anxiety 01/13/24 01/15/24 metformin 500 mg tablet 500 mg PO BID 01/13/24 01/15/24 Allergies Allergy/AdvReac Type Severity Reaction Status Date / Time buspirone AdvReac Severe Nausea and Verified 01/15/24 12:13 Vomiting Review of Systems Review of Systems: A 10 system review of systems was completed on the patient and is negative except for what is stated in the HPI. Nursing and ancillary documentation was reviewed. [facility] Past Medical History Medical History Anxiety Fatty liver Former smoker Headache, migraine Hypothyroid 04/01/2020 reverse T3 to high Other shelter (current) drug therapy Pulmonary embolism Surgical History Surgical History H/O breast biopsy calcifications Benign H/O resection of rectum H/O thyroidectomy Hx of cholecystectomy Family History Family History Mother Cerebrovascular accident DVT (deep venous thrombosis) Social History Social History Smoking packs per day: 1 Smoking cigarettes per day: 20.0 Years smoked: 25 Smoking pack-years: 25.00 Smoking status: Former smoker Tobacco type: cigarettes Second hand tobacco smoke exposure: No Additional smoking assessment comments: 2022 Alcohol intake: never Drinks per week: 0 Substance use: never Substance use type: does not use Do You Feel Safe in your Home?: Yes Lack of Transportation: No Lack of Food: Never True Current Housing: Decline to Answer Concerned About Future Housing: Decline to Answer Difficulty Paying Gas/Electric Bills: Decline to Answer Difficulty Paying for Meds: Decline to Answer Currently Unemployed: Decline to Answer Education: Decline to Answer Difficulty w/ Childcare or Family Care: Decline to Answer Living arrangements: alone Additional living arrangements comments: Occupation/Education: unemployed Gender identity (if verbalized by the patient): Female Sexual Orientation (if Verbalized by the Patient): Straight or Heterosexual Exam Narrative: GENERAL: Well-appearing, well-nourished, and in no acute distress. HEAD: Normocephalic, atraumatic. EYES: PERRLA and EOMI. ENT: Nares clear, no rhinorrhea or epistaxis. Mucous membranes moist. NECK: Supple. CHEST: Clear to auscultation. No respiratory distress. HEART: Regular rate and rhythm. No murmur heard. Normal peripheral pulses. ABDOMEN: Soft, nontender, nondistended, normal active bowel sounds. EXTREMITIES: Normal range of motion. No edema. SKIN: Warm, dry, no rash. NEURO: No focal deficits. Alert and oriented x3. PSYCH: Normal mood and affect. Course Vital Signs Vital signs: Vital Signs Temperature 36.4 C 01/23/24 18:42 Pulse Rate 100 01/23/24 18:42 Respiratory Rate 20 01/23/24 18:42 Blood Pressure 139/90 01/23/24 18:42 Pulse Oximetry 99 01/23/24 18:42 Oxygen Delivery Room Air 01/23/24 18:42 Temperature 36.4 C 01/23/24 18:42 Pulse Rate 100 01/23/24 18:42 Respiratory Rate 20 01/23/24 18:42 Blood Pressure 139/90 01/23/24 18:42 Pulse Oximetry 99 01/23/24 18:42 Oxygen Delivery Room Air 01/23/24 18:42 Medical Decision Making MDM Narrative Medical decision making narrative: differential diagnosis includes migraine headache, UTI, electrolyte abnormality, dehydration laboratory studies were obtained on the patient showed normal CBC electrolytes showed a glucose of 273 AST and ALT were slightly elevated but this is unchanged from her previous test the patient received IV fluids IV a antiemetics IV steroids and her headache is essentially resolved at this point urinalysis showed evidence of UTI the patient was started on Keflex Vital Signs Vital Signs: Vital Signs Temperature 36.4 C 01/23/24 18:42 Pulse Rate 100 01/23/24 18:42 Respiratory Rate 20 01/23/24 18:42 Blood Pressure 139/90 01/23/24 18:42 Pulse Oximetry 99 01/23/24 18:42 Oxygen Delivery Room Air 01/23/24 18:42 Temperature 36.4 C 01/23/24 18:42 Pulse Rate 100 01/23/24 18:42 Respiratory Rate 20 01/23/24 18:42 Blood Pressure 139/90 01/23/24 18:42 Pulse Oximetry 99 01/23/24 18:42 Oxygen Delivery Room Air 01/23/24 18:42 Lab Data 01/23/24 20:25 01/23/24 20:25 Labs: Lab Results 01/23/24 01/23/24 01/23/24 Range/Units 18:51 20:23 20:25 WBC 6.7 (4.5-10.0) K/mm3 RBC 4.54 (4.2-5.4) M/mm3 Hgb 13.8 (12.0-15.0) g/dL Hct 41.1 (37.0-47.0) % MCV 90.5 (80-100) fl MCH 30.4 (26-34) pg MCHC 33.6 (32-36) g/dl RDW 13.5 (11.5-14.5) % Plt Count 142 L (150-375) k/mm3 MPV 9.3 (7.4-10.4) fl Immature Gran % (Auto) 0.3 (0-0.5) % Neut % (Auto) 68.2 (45.5-73.1) % Lymph % (Auto) 24.8 (18.3-44.2) % Barren % (Auto) 4.7 (2.6-8.5) % Eos % (Auto) 1.1 (0-4.4) % Baso % (Auto) 0.9 (0.2-1.2) % Lymph # (Auto) 1.65 (0.9-3.2) K/mm3 Barren # (Auto) 0.3 (0.1-0.6) K/mm3 Eos # (Auto) 0.1 (0-0.3) K/mm3 Baso # (Auto) 0.1 (0.0-0.1) K/mm3 Abs Immat Gran (auto) 0.02 (0.00-0.031) K/mm3 Absolute Neuts (auto) 4.5 (1.3-6.7) K/mm3 Absolute Nucleated RBC 0.000 (0.0-0.012) K/mm3 Nucleated RBC % 0.0 (0.0-0.2) % Sodium 138 (137-145) mmol/L Potassium 3.9 (3.4-5.0) mmol/L Chloride 103 (98-107) mmol/L Carbon Dioxide 27 (22-30) mmol/L Anion Gap 8 (4-12) mmol/L BUN 11 (7-17) mg/dL Creatinine 0.80 (0.7-1.0) mg/dL Estim Creat Clear Calc 94 ml/min Estimated GFR > 60 (59 - ) Glucose 273 H (65-110) mg/dL POC Capillary Glucose 251 H 276 H (65-105) mg/dl Calcium 9.3 (8.4-10.2) mg/dL Total Bilirubin 0.9 (0.2-1.3) mg/dL AST 119 H (14-36) U/L ALT 124 H (6-35) U/L Alkaline Phosphatase 86 (38-126) U/L Total Protein 8.0 (6.3-8.2) g/dL Albumin 4.2 (3.5-5.1) g/dL Urine Color Dark yellow (Yellow) Urine Appearance Cloudy H (Clear) Urine pH 5.5 (5.0-9.0) Ur Specific [place] > 1.045 H (1.001-1.035) Urine Protein 2+ H (Negative) mg/dL Urine Glucose (UA) 3+ H (Negative) mg/dL Urine Ketones 1+ H (Negative) mg/dL Ur Blood (Man) 3+ H (Negative) Urine Nitrate Negative (Negative) Urine Bilirubin 1+ H (Negative) Urine Urobilinogen 1.0 (<2.0) mg/dL Add Ur Microanalysis Reviewed Leukocyte Esterase Rfl Trace H (Negative) LORRI/UL Urine RBC >100 H (0-2) /hpf Urine WBC 21-50 H (0-3) /hpf Ur Squamous Epith Cells Few (Few) /hpf Urine Bacteria None seen /hpf Urine Casts 3-5 Hyaline Casts Present (None) /lpf Urine Mucus Present /lpf Discharge Plan Discharge Clinical Impression: Headache, migraine, UTI (urinary tract infection) Patient Disposition: Home, Self-Care Condition: Stable Instructions: Antibiotic Form, Urinary Tract Infection in Women (ED), Acute Headache (ED) Prescriptions: New cephalexin 500 mg capsule 500 mg PO Q12H 7 Days Qty: 14 0RF No Action losartan 25 mg tablet 25 mg PO DAILY Qty: 90 1RF metformin 500 mg tablet 500 mg PO BID atorvastatin [Lipitor] 10 mg tablet 10 mg PO QHS hydroxyzine HCl 25 mg tablet 25 mg PO BID PRN (Reason: Anxiety) topiramate [Topamax] 50 mg tablet 50 mg PO TID Qty: 270 1RF levothyroxine [Synthroid] 150 mcg tablet 150 mcg PO DAILY Qty: 90 1RF Follow-up/Referrals: Thanh,MD Carmelo [Primary Care Provider] - Time of Disposition: 21:52
[2024-01-23] MEDS: CEPHALEXIN 500 MG CAPSULE PO (22:03)
[2024-01-23 22:17] VITALS: BP 133/88; PULSE 93; RESP 17; O2SAT 99
[2024-01-23 22:18] VITALS: BP 133/88; PULSE 93; RESP 17; O2SAT 99
== END 2024-01-23 22:20 | disposition home or self-care (01) ==
PROVIDERS: Emergency Provider Emergency Medicine; PCP Family Medicine
DX: G43.909 Migraine, unspecified, not intractable, without status migrainosus (principal); N39.0 Urinary tract infection, site not specified; F41.9 Anxiety disorder, unspecified; E03.9 Hypothyroidism, unspecified; Z86.711 Personal history of pulmonary embolism; Z87.891 Personal history of nicotine dependence
CPT/HCPCS: 36415; 80053; 81001; 82948; 85025; 87086; 96365; 96375; 99284; A9270; J0780; J1100; J3475; J7030

== ENCOUNTER 2024-03-17 15:40 | Outpatient (CLI) | payer OTHER, SELFPAY ==
--- NOTE | ~2024-03-17 | US_ITS ---
EXAMINATION: US thyroid DATE: 03/17/2024 16:09 INDICATION: Malignant neoplasm of thyroid. Abnormal thyroid function tests. TECHNIQUE: Multiple ultrasound images of the thyroid were obtained. COMPARISON: None. FINDINGS: The thyroid is absent. There is no lymphadenopathy. IMPRESSION: 1. Absent thyroid. Reviewed, dictated and finalized at location A. IT CORRESPONDENCE CLERK IMPRESSION: 1. Absent thyroid.
--- OUTSIDE RECORDS SUMMARY | 2024-03-17 15:55 | XMS_ITS | Clinical Summary ---
Author Organization [facility] Medical Office Building A Address [address] [place] [address] Care Team Providers Care Clock Assembler Name Role Phone Carmelo Law MD Primary Care Provider [phone] Allergies No known active allergies Medications topiramate (TOPAMAX) 50 mg tablet Take 150 mg by mouth nightly Active ALPRAZolam (XANAX) 0.25 mg tablet Take 1 tablet (0.25 mg total) by mouth 3 (three) times a day as needed for anxiety Active apixaban (ELIQUIS) 5 mg tabletIndicatio ns:deep venous thrombosis Take 1 tablet (5 mg total) by mouth 2 (two) times a day 60 tablet 2 1 Active losartan (COZAAR) 25 mg tablet Take 1 tablet (25 mg total) by mouth daily 30 tablet 2 1 Active Additional Information Patient taking differently: 50 mgoral Daily, Reported on 12/17/2023 levothyroxine (SYNTHROID) 150 mcg tablet Take 200 mcg by mouth daily 1 Active albuterol (PROAIR RESPICLICK) 90 mcg/actuation inhaler Inhale 2 puffs every 6 (six) hours as needed Active HYDROcodone-mark taminophen (NORCO) 5-325 mg per tabletIndicatio ns:Pain Take 1 tablet by mouth every 6 (six) hours as needed for pain for up to 6 doses 6 tablet 2 Active busPIRone (BUSPAR) 5 mg tabletIndicatio ns:Generalized Anxiety Disorder Take 1 tablet (5 mg total) by mouth 3 (three) times a day Active metFORMIN (GLUCOPHAGE) 500 mg tablet Take 1 tablet (500 mg total) by mouth 2 (two) times a day with meals Active atorvastatin (LIPITOR) 10 mg tablet Take 1 tablet (10 mg total) by mouth daily Active rizatriptan (MAXALT) 5 mg tabletIndicatio ns:Migraine Take 1 tablet (5 mg total) by mouth once as needed for migraine May repeat in 2 hours if unresolved. Do not exceed 30 mg in 24 hours. Active Active Problems Problem Noted Date Diagnosed Date Elevated blood pressure read ing in office without diagnosis of hypertension 03/21/2020 Multiple pulmonary emboli (CMS/HCC) 03/20/2020 Acquired hypothyroidism 03/20/2020 Anxiety 03/20/2020 Rectal nodule 09/14/2019 Assessment & Plan (11/10/2019 2:58 PM CDT): Had EUS with removal of nodule done 09/2019. Biopsy showed neuroendocrine tumor. She is to have a flex sig with EUS done in 6 months and then [address] Lal. Pt told to keep in mind this will be around Mar 2020 and advised to f/u as recommended. She verbalized understanding. Assessment & Plan (09/14/2019 12:06 PM CDT): Pt had colonoscopy with findings of rectal nodule. This area was biopsy and showed benign, nonneoplastic colorectal mucosa. Will refer for rectal EUS at [facility] to further evaluate. Irritable bowel syndrome wit h both constipation and diarrhea 09/14/2019 Assessment & Plan (11/10/2019 2:57 PM CDT): Pt says she is still having alternating constipation/diarrhea but doesn't really bother her and not really an issues. She is more on the constipated side most of the time but does get intermittent episodes of urgent diarrhea. Advised to start on fiber supplement (start with half dose) daily. Assessment & Plan (09/14/2019 12:11 PM CDT): Pt says she was diagnosed with IBS many years ago. She skips a few days, then suddenly has urgent diarrhea. She gets cramping and soreness in lower abdomen correlated with BM's. Start probiotics daily. Reviewed some of patient's diet and appears she has poor diet. Advised to make healthier choice with food. Follow low fat diet and track foods that may exacerbate her symptoms. Nausea 09/14/2019 Assessment & Plan (09/14/2019 12:13 PM CDT): Pt has mild nausea about an hour after eating. This occurs maybe every other day. She does not have a gallbladder. When asked about diet, patient says she had a brat and mac and cheese. Advised to follow healthier low fat diet. BMI 35.0-35.9,adult 09/14/2019 Class 2 obesity due to exces s calories without serious comorbidity with body mass index (BMI) of 35.0 to 35.9 in adult 09/14/2019 Encounter for screening colonoscopy 04/01/2019 Overview (04/01/2019): Added automatically from request for surgery [id number] Former smoker 03/09/2019 Other chest pain 03/09/2019 Abnormal glucose 03/09/2019 Encounters Date Type Department Care Team Description 01/23/2024 12:17 PM WASH OIL PUMP OPERATOR - 01/23/2024 11:59 PM WASH OIL PUMP OPERATOR Hospital Encounter [facility] Emergency, Room R Discharge Disposition: Discharge to home or self care 12/17/2023 1:00 PM CDT Office Visit [facility] [id number] [place] [address] Cedric Mejia MD Aneurysm of ascending aorta without rupture (HCC) (Primary Dx); Elevated blood pressure reading in office without diagnosis of hypertension 12/17/2023 11:43 AM CDT - 12/17/2023 11:59 PM CDT Hospital Encounter [facility] Radiology [address] [place] [address] Aneurysm of ascending aorta without rupture (HCC) Discharge Disposition: Discharge to home or self care from Last 3 Months Surgical History Surgery Date Site/Laterality Comments CHOLECYSTECTOMY COLONOSCOPY 02/18/2014 - 02/17/2015 THYROIDECTOMY UPPER GASTROINTESTINAL ENDOSCOPY Medical History Medical History Date Comments Smoking Thyroid cancer (HCC) Neuroendocrine tumor Rectum s/p EMR 09/2019 Hx of adenomatous colonic polyps 08/2019 Pulmonary embolism (HCC) 03/20/2020 Colon polyp GERD (gastroesophageal reflux disease) Hypertension Hypothyroidism Seizures (HCC) non epileptic PN ES (stress related) Family History Medical History Relation Name Comments Heart attack Father No Known Problems Mother Relation Name Status Comments Father Alive Mother Alive Social History Tobacco Use Types Packs/Day Years Used Date Smoking Tobacco: Former Cigarettes Q uit: 08/2019 Smokeless Tobacco: Current Tobacco Cessation:Ready to Q uit: Not Asked; Counseling Given: Not Answered Alcohol Use Standard Drinks/Week Comments Yes 0 (1 standard drink = 0.6 oz pur e alcohol) AUDIT-C Answer Date Recorded Q1: How often do you have a drink containing alc ohol? Monthly or less 05/24/2020 Q2: How many drinks containi ng alcohol do you have on a typical day when you are drinking? 1 or 2 05/24/2020 Q3: How often do you have si x or more drinks on one occasion? Never 05/24/2020 Comments No Sex and Gender Information Value Date Recorded Sex Assigned at Not on file Legal Sex Female 8:20 AM WASH OIL PUMP OPERATOR Gender Identity Female 12/06/2020 9:10 AM CDT Sexual Orientation Straight 03/07/2019 5: 53 PM WASH OIL PUMP OPERATOR Obstetrics History Para Term AB IAB SAB Ectopic Multiple Livin g Live Births 3 1 1 Date Outcome GA Total Labor Labor/2nd/3rd Weight Sex Type Anes PTL Suzie A1 A5 Name Clin Term Last Filed Vital Signs Vital Sign Reading Time Taken Comments Blood Pressure 118/97 12/17/2023 1:23 PM CDT Pulse 81 12/17/2023 1:23 PM CDT Temperature 36.7 ??C (98 ??F) 01/25/2022 5:39 PM WASH OIL PUMP OPERATOR Respiratory Rate 16 12/18/2022 1:06 PM CDT Oxygen Saturation 98% 12/18/2022 1:06 PM CDT Inhaled Oxygen Concentration - - Weight 117.9 kg (260 lb) 12/18/2022 1:06 PM CDT Height 172.7 cm (5' 8 ) 12/18/2022 1:06 PM CDT Body Mass Index 39.53 12/18/2022 1:06 PM CDT Plan of Treatment Health Maintenance Due Date Last Done Comments Cervical Cancer Screening 1970 Depression Screening 1970 Hepatitis C Screening 1970 Regular Well Visit/Exam 18-64 1986 Zoster Vaccine (1 of 2) 2018 Breast Cancer Screening-Mammogram 10/01/2020 10/02/2019 Influenza Vaccine (#1) 2023 Colon Cancer Screening-Colonoscopy 08/30/2029 08/31/2019 DTaP/Tdap/Td Vaccine (2 - Td or Tdap) 04/03/2031 04/03/2021, 10/31/2001 Colon Cancer Screening-CT Colonography Discontinued 08/31/2019 Colon Cancer Screening-DNA Stool Discontinued 08/31/2019 Colon Cancer Screening-FIT Discontinued 08/31/2019 Colon Cancer Screening-Sigmoidoscopy Discontinued 08/31/2019 Pneumococcal vaccine <65 Aged Out 01/24/2022 No longer eligible based on patient's age to complete this topic Procedures Procedure Name Priority Date/Time Associated Diagnosis Comments CTA CHEST W WO CONTRAST Schedule Routine, Read Routine (OP Routine) 12/17/2023 12:28 PM CDT Aneurysm of ascending aorta without rupture (HCC) POCT CREATININE FOR CONTRAST EVALUATION Routine 12/17/2023 12:23 PM CDT SCREENING MAMMOGRAM BILATERAL W MARCIAL Schedule Routine, Read Routine (OP Routine) 10/02/2019 1:08 PM CDT Encounter for screening mammogram for malignant neoplasm of breast COLONOSCOPY 08/31/2019 8:58 AM CDT from Last 3 Months or Most Recently Relevant to Health Maintenance Results * CT angiogram chest with and without contrast (12/17/2023 12:28 PM CDT) Anatomical Region Laterality Modality Chest N/A Computed Tomogra phy 12/17/2023 1:09 PM CDT Impressions 12/17/2023 1:09 PM CDT 1. ??No evidence of a thoracic aortic aneurysm. 2. ??The lungs remain clear. 3. ??Cholecystectomy. 4. ??Borderline splenomegaly. 5. ??No change from previous. Electronically signed by: Sheldon Henriquez M.D. Narrative 12/17/2023 1:09 PM CDT EXAMINATION: CTA CHEST W WO CONTRAST DATE: 12/17/2023 12:30 PM HISTORY: Aneurysm of the ascending thoracic aorta. ??Yearly surveillance. COMPARISON: 12/18/2022 TECHNIQUE: Transaxial computed tomographic images of the chest were obtained prior to and following the intravenous administration of 95 mL Optiray 350. ??Coronal and sagittal reconstructions were obtained. 3D volumetric analysis with VRT and MIP images were created on a dedicated workstation. VASCULAR FINDINGS: The heart size is normal. ??The thoracic aorta appears normal. ??The ascending thoracic aorta measures 3.7 cm and is unchanged. ??No evidence of aortic dissection. ?? NONVASCULAR FINDINGS: No evidence of mediastinal or hilar adenopathy. ??The lungs are well-expanded and clear. ??Scans through the upper abdomen demonstrate postsurgical changes from a cholecystectomy. ??There is borderline splenomegaly. ??No significant bony abnormality is seen. Procedure Note Sheldon Henriquez MD - 12/17/2023 EXAMINATION: CTA CHEST W WO CONTRAST DATE: 12/17/2023 12:30 PM HISTORY: Aneurysm of the ascending thoracic aorta. Yearly surveillance. COMPARISON: 12/18/2022 TECHNIQUE: Transaxial computed tomographic images of the chest were obtained prior to and following the intravenous administration of 95 mL Optiray 350. Coronal and sagittal reconstructions were obtained. 3D volumetric analysis with VRT and MIP images were created on a dedicated workstation. VASCULAR FINDINGS: The heart size is normal. The thoracic aorta appears normal. The ascending thoracic aorta measures 3.7 cm and is unchanged. No evidence of aortic dissection. NONVASCULAR FINDINGS: No evidence of mediastinal or hilar adenopathy. The lungs are well-expanded and clear. Scans through the upper abdomen demonstrate postsurgical changes from a cholecystectomy. There is borderline splenomegaly. No significant bony abnormality is seen. IMPRESSION: 1. No evidence of a thoracic aortic aneurysm. 2. The lungs remain clear. 3. Cholecystectomy. 4. Borderline splenomegaly. 5. No change from previous. Electronically signed by: Sheldon Henriquez M.D. us Cedric Mejia MD IM CT PROCEDURES Final Resu lt * POCT creatinine for contrast evaluation (12/17/2023 12:23 PM CDT) Creatinine, POC 0.8 0.6 - 1.3 mg/dL Blood 12/17/2023 12:2 3 PM CDT Cedric Mejia MD POINT OF CARE TEST ORDERABLE S Final Result * (ABNORMAL) Screening Mammogram Bilateral W Marcial (10/02/2019 1:08 PM CDT) Anatomical Region Laterality Modality Breast Bilateral Mammography 10/05/2019 10:1 8 AM CDT Impressions 10/15/2019 8:33 AM CDT 1. ??Right breast 3.3 cm mass at approximately the 9 o'clock position, 3 cm from the nipple. ??Recommend right breast ultrasound for further evaluation. 2. ??Left breast 2 cm mass at the 4-5 o'clock position, 8 cm from the nipple. ??Recommend left breast ultrasound for further evaluation. BI-RADS: 0 - Additional imaging evaluation is necessary. The patient has been or will be contacted. Electronically signed by: Christos Ruiz M.D. Narrative 10/15/2019 8:33 AM CDT EXAMINATION: SCREENING MAMMOGRAM BILATERAL W MARCIAL ORDERING HEALTHCARE PROVIDER: SELF SCREENING MAMMOGRAM HISTORY: Routine screening mammography. COMPARISON: ??12/01/2015, 11/28/2015 TECHNIQUE: CC and MLO views of the bilateral breasts were obtained with digital technique using breast tomosynthesis with C view. Computer aided detection was utilized. FINDINGS: DENSITY: The tissue of the bilateral breasts is heterogeneously dense, which may obscure small masses. BREASTS: There is a 3.3 cm oval circumscribed mass in the the outer right breast at approximately the 9 o'clock position.. ??There is a 2 cm mass in the outer left breast at the 4-5 o'clock position. ??Other smaller circumscribed masses within both breasts are either stable or decreased in size from the prior exam, consistent with benign entities (most likely cysts). ??There is a biopsy clip in the right breast. ??No architectural distortion or suspicious calcifications are seen within either breast. us Self Screening Mammogram IMG MAMMO PROCEDURES Fi nal Result * COLONOSCOPY (08/31/2019 8:58 AM CDT) Anatomical Region Laterality Modality Other Narrative Procedure Note Hattie West MD - 08/31/2019 8:58 AM CDT [facility] Patient Name: Gracia Bray Procedure Date: 08/31/2019 8:58 AM Date of : 1970 Admit Type: Outpatient Age: 49 Gender: Female Attending MD: Hattie West M.D. Room: [facility] ROOM 1 Note Status: Finalized Patient Profile: This is a 49 year old female. No family h/o colon cancer. Procedure: Colonoscopy Indications: Screening for colorectal malignant neoplasm, Last colonoscopy: 2014 Referring MD: Inderjit Jewell D.O. Providers: Hattie West M.D. Impression: - Diverticulosis in the sigmoid colon. - Two 6 to 10 mm polyps in the sigmoid colon,removed with a hot snare. Resected and retrieved. - Submucosal nodule in the recto-sigmoid colon. Biopsied. Tattooed. - Internal hemorrhoids. Recommendation: - Await pathology results. - Repeat colonoscopy in 3 years for screeningpurposes. - Continue present medications. - Follow up in our GI office will in 2 or 3 weeks to discuss biopsy results and arrange referral for endoscopic ultrasound of the rectum to betterevaluate the nodule at the rectal sigmoid area. Medicines: Monitored Anesthesia Care Complications: No immediate complications. Estimated Blood Loss: Estimated blood loss: none. Procedure: Pre-Anesthesia Assessment: - Prior to the procedure, a History and Physical was performed, and patient medications and allergieswere reviewed. The patient's tolerance of previous anesthesia was also reviewed. The risks and benefitsof the procedure and the sedation options and riskswere discussed with the patient. All questions were answered, and informed consent was obtained. Prior Anticoagulants: The patient has taken no previous anticoagulant or antiplatelet agents. ASA Grade Assessment: II - A patient with mild systemicdisease. After reviewing the risks and benefits, the patientwas deemed in satisfactory condition to undergo the procedure. The benefits, risks and alternatives of theprocedure and sedation were discussed and informed consent was obtained. All questions were answered. Please referto the signed informed consent document in the medical record. The scope was passed under direct vision.The Pediatric Colonoscope PCF-H190L [id number] was introduced through the anus and advanced to the the cecum, identified by the appendiceal orifice. Bowel prep was administered using a split dose. The bowel preparation used was Miralax. The bowel preparation used was bisacodyl tablets. The quality of the bowel preparation was good. Findings: The perianal and digital rectal examinations were normal. The cecum appeared normal. The terminal ileum appeared normal. The ascending colon appeared normal. The transverse colon appeared normal. The descending colon appeared normal Multiple small-mouthed diverticula were found in the sigmoid colon. Two sessile polyps were found in the sigmoid colon. The polyps were 6to 10 mm in size. These polyps were removed with a cold snare and a hot snare. Resection and retrieval were complete. One 20 mm submucosal nodule was found in the recto-sigmoid colon at approximately 16 cm from the external anal verge. Biopsies were taken with a cold forceps for histology. Area was tattooed with aninjection of 3 mL of Spot (carbon black). Internal hemorrhoids were found during retroflexion. The hemorrhoids were medium-sized. Electronically signed by Hattie West M.D. Hattie West M.D. 08/31/2019 10:21:28 AM Number of Addenda: 0 Note Initiated On: 08/31/2019 8:58 AM Procedure Code(s): --- Professional --- 24176, Colonoscopy, flexible; with removal of tumor(s), polyp(s), or other lesion(s) by snare technique 83601, Colonoscopy, flexible; with directed submucosal injection(s),any substance 08693, 59, Colonoscopy, flexible; with biopsy, single or multiple Diagnosis Code(s): --- Professional --- Z12.11, Encounter for screening for malignant neoplasm of colon D12.5, Benign neoplasm of sigmoid colon K64.8, Other hemorrhoids K63.89, Other specified diseases of intestine K57.30, Diverticulosis of large intestine without perforation orabscess without bleeding CPT copyright 2017 [employer]. All rights reserved. The codes documented in this report are preliminary and upon flavoring machine operator reviewmay be revised to meet current compliance requirements. Recognized by the [employer] for promoting quality in endoscopy Hattie West MD ENDOSCOPY PROCEDURES Final Result from Last 3 Months or Most Recently Relevant to Health Maintenance Insurance [facility]S [id number] [place] [address] [facility] Advance Directives For more information, please contact: [phone] * Full Code (Latest Code Status on File) Date Activated Date Inactivated Comments 05/24/2020 10:29 AM 05/24/2020 5:21 PM * Full Code Date Activated Date Inactivated Comments 03/20/2020 8:25 PM 03/23/2020 8:10 PM * Full Code Date Activated Date Inactivated Comments 03/20/2020 6:53 PM 03/20/2020 8:25 PM * Full Code Date Activated Date Inactivated Comments 10/05/2019 12:33 PM 10/05/2019 8:02 PM * Full Code Date Activated Date Inactivated Comments 08/31/2019 8:54 AM 08/31/2019 3:08 PM Care Teams Clock Assembler Relationship Specialty Start Date End Date Law, Carmelo, MD [address] [place] [address] PCP - General Family Medicine 12/06/21
--- OUTSIDE RECORDS SUMMARY | 2024-03-17 15:55 | XMS_ITS | Patient Health Summary ---
Author Organization [facility] Address [address] [address] Care Team Providers Care Sql Ssrs Developer Name Role Phone Carmelo Law MD Primary Care Provider [phone] Note from [facility],non-owned Affiliates and Associated Physician Practices is amultiple site organization consisting of ambulatory clinics and hospital sitesin [place], [place], [place] and [place]. This disclosure is being madepursuant to the Care Everywhere program and may not contain all information available regarding this patient. Last updated 17.[facility] Allergies No known active allergies Medications * Be aware that medications may not be up to date on this document. Alwaysverify current medications with the patient. * ALPRAZolam (Xanax) 0.25 MG tablet Take 1 (one) tablet by mouth once daily as needed * atorvastatin (Lipitor) 10 MG tablet(Started 08/02/2022) Take 1 (one) tablet by mouth at bedtime * celecoxib (CeleBREX) 100 MG capsule Take 1 (one) capsule by mouth 2 times daily as needed * levothyroxine (Synthroid) 175 MCG tablet(Started 08/02/2022) 200 mcg once daily * losartan (Cozaar) 50 MG tablet Take 1 (one) tablet by mouth once daily * metFORMIN ER 24hr (Glucophage XR) 500 MG tablet(Started 05/08/2022) 2 times daily * ondansetron, disintegrating, (Zofran ODT) 4 MG tablet(Started 03/21/2023) Take 1 (one) tablet by mouth once daily as needed for Nausea/Vomiting * Qulipta 60 MG TABS(Started 09/06/2023) Take 1 (one) tablet by mouth once daily as directed. * glipiZIDE (Glucotrol) 5 MG tablet(Started 01/28/2024) Take 1 (one) tablet by mouth 2 times daily with morning and evening meal * Januvia 100 MG tablet(Started 01/28/2024) Take 1 (one) tablet by mouth once daily * Hepatitis B, CpG-Adjuvanted Vaccine, Adult (Heplisav-B) 20 MCG/0.5ML (HepB-Cpg)(Started 02/20/2024) Inject 0.5 mL into muscle every 30 days for 2 doses Ended Medications* Rybelsus 3 MG tablet(Started 06/04/2023)(Discontinued) Take 3 mg by mouth once daily Active Problems Problem Noted Date Diagnosed Date NAFLD (nonalcoholic fatty liver disease) 023 Immunizations * HEP B VACCINE(Given 08/06/2023) * HEP B VACCINE, ADULT 3 DOSE(Given 09/04/2021, 12/30/2001, 10/31/2001) * HEP B VACCINE, PED/ADOL(Given 04/24/2023, 03/25/2023, 04/24/2022, 10/25/2021) * PNEUMOCOCCAL PPSV23(Given 01/24/2022) * TDAP (7yrs+)(Given 04/03/2021) * Td (Adult), 2 Lf Tetanus Toxoid, Adsorbed, Pf(Given 10/31/2001) Social History Tobacco Use Types Packs/Day Years Used Date Smoking Tobacco: Former Cigarettes Q uit: 04/2023 Smokeless Tobacco: Never Tobacco Cessation:Counseling Given: Not Answered Comments:Stopped smoking in April, smoked a few cigarettes last week; smoked during week of Alcohol Use Standard Drinks/Week Comments Not Currently 0 (1 standard drink = 0.6 oz pur e alcohol) none since November AUDIT-C Answer Date Recorded Q1: How often do you have a drink containing alcohol? Never 10/16/2022 Q2: How many drinks containi ng alcohol do you have on a typical day when you are drinking? Patient does not drink Q3: How often do you have si x or more drinks on one occasion? Never 10/16/2022 Sex and Gender Information Value Date Recorded Sex Assigned at Female 08/15/2022 9:15 PM CDT Gender Identity Female 08/15/2022 9:15 PM CDT Sexual Orientation Straight 08/15/2022 9: 15 PM CDT Last Filed Vital Signs Vital Sign Reading Time Taken Comments Blood Pressure 146/83 02/20/2024 1:51 PM IMAGING TECHNICIAN Pulse 76 02/20/2024 1:51 PM IMAGING TECHNICIAN Temperature 36.5 ??C (97.7 ??F) 02/20/2024 1:51 PM CS T Respiratory Rate 16 02/20/2024 1:51 PM IMAGING TECHNICIAN Oxygen Saturation 99% 02/20/2024 1:51 PM IMAGING TECHNICIAN Inhaled Oxygen Concentration - - Weight 118 kg (260 lb 3.2 oz) 02/20/2024 1:51 PM IMAGING TECHNICIAN Height 172.7 cm (5' 8 ) 02/20/2024 1:51 PM IMAGING TECHNICIAN Body Mass Index 39.56 02/20/2024 1:51 PM IMAGING TECHNICIAN Procedures * US ABDOMEN LIMITED(Performed 02/20/2024) Performed for Cirrhosis of liver without ascites, unspecified hepatic cirrhosis type (HCC) * PT-INR(Performed 02/07/2024) * ALPHA FETOPROTEIN BLOOD TUMOR MARKER(Performed 02/07/2024) * HEPATITIS B SURFACE ANTIBODY(Performed 02/07/2024) * CBC W AUTO DIFFERENTIAL(Performed 02/07/2024) * COMPREHENSIVE METABOLIC PANEL(Performed 02/07/2024) * BILIRUBIN DIRECT(Performed 02/07/2024) * CT ABDOMEN MULTI PHASE W CONT(Performed 08/20/2023) Performed for Cirrhosis of liver without ascites, unspecified hepatic cirrhosis type (HCC) * PT-INR(Performed 08/12/2023) * VITAMIN D 1,25 DIHYDROXY(Performed 08/12/2023) * ALPHA FETOPROTEIN BLOOD TUMOR MARKER(Performed 08/12/2023) * CBC W AUTO DIFFERENTIAL(Performed 08/12/2023) * COMPREHENSIVE METABOLIC PANEL(Performed 08/12/2023) * MAGNESIUM BLOOD(Performed 08/12/2023) * BILIRUBIN DIRECT(Performed 08/12/2023) * US ABDOMEN LIMITED(Performed 03/15/2023) Performed for Cirrhosis of liver without ascites, unspecified hepatic cirrhosis type (HCC) * COMPREHENSIVE METABOLIC PANEL(Performed 01/30/2023) Performed for Elevated liver enzymes, Hepatic fibrosis, NAFLD (nonalcoholic fatty liver disease), Encounter for screening for other viral diseases, Abdominal pain, unspecified abdominal location * CBC W AUTO DIFFERENTIAL(Performed 01/30/2023) Performed for Elevated liver enzymes, Hepatic fibrosis, NAFLD (nonalcoholic fatty liver disease), Encounter for screening for other viral diseases, Abdominal pain, unspecified abdominal location * ALPHA FETOPROTEIN BLOOD TUMOR MARKER(Performed 01/30/2023) Performed for Elevated liver enzymes, Hepatic fibrosis, NAFLD (nonalcoholic fatty liver disease), Encounter for screening for other viral diseases, Abdominal pain, unspecified abdominal location * BILIRUBIN DIRECT(Performed 01/30/2023) Performed for Elevated liver enzymes, Hepatic fibrosis, NAFLD (nonalcoholic fatty liver disease), Encounter for screening for other viral diseases, Abdominal pain, unspecified abdominal location * PT-INR(Performed 01/30/2023) Performed for Elevated liver enzymes, Hepatic fibrosis, NAFLD (nonalcoholic fatty liver disease), Encounter for screening for other viral diseases, Abdominal pain, unspecified abdominal location * IR US GUIDE NEEDLE PLACEMENT(Performed 10/16/2022) Performed for NAFLD (nonalcoholic fatty liver disease) * PATHOLOGY TISSUE(Performed 10/16/2022) Performed for NAFLD (nonalcoholic fatty liver disease) * GLUCOSE - POINT OF CARE(Performed 10/16/2022) * PT-INR SLH(Performed 10/16/2022) Performed for NAFLD (nonalcoholic fatty liver disease) * CBC W AUTO DIFFERENTIAL(Performed 10/16/2022) Performed for NAFLD (nonalcoholic fatty liver disease) * US ELASTOGRAPHY(Performed 09/04/2022) Performed for Elevated liver enzymes, Encounter for screening for other viral diseases * US ABDOMEN LIMITED(Performed 09/04/2022) Performed for Elevated liver enzymes, Encounter for screening for other viral diseases * HEPATITIS C AB W/RFLX TO HCV RNA QN PCR(Performed 08/14/2022) Performed for Elevated liver enzymes * IRON + TIBC + FERRITIN(Performed 08/14/2022) Performed for Elevated liver enzymes * HEPATITIS B CORE ANTIBODY TOTAL(Performed 08/14/2022) Performed for Elevated liver enzymes, Encounter for screening for other viral diseases * HEPATITIS B SURFACE ANTIBODY(Performed 08/14/2022) Performed for Elevated liver enzymes, Encounter for screening for other viral diseases * IGG BLOOD(Performed 08/14/2022) Performed for Elevated liver enzymes * HEPATITIS B SURFACE ANTIGEN W RFLX CONFIRMATION(Performed 08/14/2022) Performed for Elevated liver enzymes, Encounter for screening for other viral diseases * HEPATITIS A ANTIBODY(Performed 08/14/2022) Performed for Elevated liver enzymes, Encounter for screening for other viral diseases * BILIRUBIN DIRECT(Performed 08/14/2022) Performed for Elevated liver enzymes * COMPREHENSIVE METABOLIC PANEL(Performed 08/14/2022) Performed for Elevated liver enzymes * GGT(Performed 08/14/2022) Performed for Elevated liver enzymes * GZFND-6-DCIBUYIGHRB BLOOD(Performed 08/14/2022) Performed for Elevated liver enzymes * CERULOPLASMIN(Performed 08/14/2022) Performed for Elevated liver enzymes * SMOOTH MUSCLE ANTIBODY(Performed 08/14/2022) Performed for Elevated liver enzymes * MARIANA BLOOD SCREEN W/REFLEX TITER(Performed 08/14/2022) Performed for Elevated liver enzymes * ME LIVER ELASTOGRAPHY(Performed 08/14/2022) Performed for Elevated liver enzymes Results * US ABDOMEN LIMITED (02/20/2024 12:06 PM IMAGING TECHNICIAN) Only the most recent of3 resultswithin the time period is included. Anatomical Region Laterality Modality Abdomen Ultrasound 02/20/2024 1:18 PM IMAGING TECHNICIAN Impressions 02/20/2024 3:27 PM IMAGING TECHNICIAN Impression: 1.Diffuse hepatic steatosis without discrete hepatic observation. 2.Liver Visualization Score B: Moderate limitations. 3.US-1 Negative. Repeat surveillance US in 6 months. 4.Status post cholecystectomy. Report drafted by Asif Mandujano (resident). I, Vi Gleason MD have personally reviewed and interpreted this examination/study. > Interpreting Provider: Vi Gleason MD on 02/20/2024 3:27 PM Narrative 02/20/2024 3:27 PM IMAGING TECHNICIAN PROCEDURE: ??US ABDOMEN LIMITED, DATE/TIME OF EXAM: ??02/20/2024 12:08 PM, LOCATION ??[facility] INDICATION: K74.60: Cirrhosis of liver without ascites, unspecified hepatic cirrhosis type (HCC) COMPARISON: Limited abdominal ultrasound dated 03/15/2023 Findings Liver Visualization Score: Moderate limitations in liver visualization Liver Morphology: The liver is increased in echogenicity. The liver has a smooth surface contour. Liver Observations: None. Main Portal Vein: Color Doppler evaluation demonstrates patency of the main portal vein. Hepatic Veins: Color Doppler evaluation demonstrates patency of the hepatic veins. Bile Ducts: The common bile duct is nondilated, measuring 3 mm. No intrahepatic or extrahepatic biliary dilation. Gallbladder: The gallbladder is absent. Ascites: No ascites is present. Spleen: The spleen measures 13.5 cm in length. Pancreas: The visible pancreas is normal in echogenicity. Right Kidney: The right kidney measures 10.8 cm in length. Limited views of the right kidney reveal no evidence of nephrolithiasis or hydronephrosis. ??No discrete mass identified. Procedure Note Yudy Gleason MD - 02/20/2024 PROCEDURE: US ABDOMEN LIMITED, DATE/TIME OF EXAM: 02/20/2024 12:08 PM, LOCATION [facility] INDICATION: K74.60: Cirrhosis of liver without ascites, unspecified hepaticcirrhosis type (HCC) COMPARISON: Limited abdominal ultrasound dated 03/15/2023 Findings Liver Visualization Score: Moderate limitations in liver visualization Liver Morphology: The liver is increased in echogenicity. The liver has a smooth surface contour. Liver Observations: None. Main Portal Vein: Color Doppler evaluation demonstrates patency of the main portal vein. Hepatic Veins: Color Doppler evaluation demonstrates patency of the hepatic veins. Bile Ducts: The common bile duct is nondilated, measuring 3 mm. No intrahepatic or extrahepatic biliary dilation. Gallbladder: The gallbladder is absent. Ascites: No ascites is present. Spleen: The spleen measures 13.5 cm in length. Pancreas: The visible pancreas is normal in echogenicity. Right Kidney: The right kidney measures 10.8 cm in length. Limited views of the right kidney reveal no evidence of nephrolithiasis or hydronephrosis. No discrete mass identified. Impression: 1.Diffuse hepatic steatosis without discrete hepatic observation. 2.Liver Visualization Score B: Moderate limitations. 3.US-1 Negative. Repeat surveillance US in 6 months. 4.Status post cholecystectomy. Report drafted by Asif Mandujano (resident). Vi Bonilla MD have personally reviewed and interpreted this examination/study. > Interpreting Provider: Vi Gleason MD on 02/20/2024 3:27 PM Adrián Jimenez MD US ORDERABLES * (ABNORMAL) PT-INR (02/07/2024 10:04 AM IMAGING TECHNICIAN) Only the most recent of3 resultswithin the time period is included. Pathologist [facility] INR 1.1 [facility] Comment: Reference Range ? 0.9-1.1 Moderate-intensity Warfarin Therapy 2.0-3.0 Higher-intensity Warfarin Therapy ?? 3.0-4.0 PT 11.8(H) 9.0 - 11.5 sec [facility] Comment: For additional information, please refer to http://education.MeeGenius/faq/YXG069 (This link is being provided for informational/ educational purposes only.) Test Performed at: [facility] [address] ??[id number] JERRICA NORWOOD MD 02/07/2024 10:0 4 AM IMAGING TECHNICIAN 02/07/2024 10:04 AM IMAGING TECHNICIAN Adrián Jimenez MD LAB - COAGULATION OR DERABLES [address] [address] * ALPHA FETOPROTEIN BLOOD TUMOR MARKER (02/07/2024 10:01 AM IMAGING TECHNICIAN) Only the most recent of3 resultswithin the time period is included. Pathologist [facility] Alpha-Fetoprotei n Tumor Marker 4.2 ng/mL [facility] Comment: Reference Range: ?? <6.1 The use of AFP as a tumor marker in females is not recommended. This test was performed using the Haydee Harman chemiluminescent method. Values obtained from different assay methods cannot be used interchangeably. AFP levels, regardless of value, should not be interpreted as absolute evidence of the presence or absence of disease. Test Performed at: [facility] [address] ??[phone] BLANCA ARROYO 02/07/2024 10:0 1 AM IMAGING TECHNICIAN 02/07/2024 10:02 AM IMAGING TECHNICIAN Adrián Jimenez MD LAB - CHEMISTRY ORDE RABMERLENE Performing Organization Address [facility] Co de Phone Number [facility] [address] [place] [phone] * CBC WITH DIFFERENTIAL (02/07/2024 10:01 AM IMAGING TECHNICIAN) Only the most recent of4 resultswithin the time period is included. White Blood Cell Count 4.8 3.8 - 10.8 Thousand/u L [facility] RBC 4.41 3.80 - 5.10 Million/uL [facility] Hemoglobin 13.8 11.7 - 15.5 g/dL [facility] Hematocrit 41.1 35.0 - 45.0 % [facility] MCV 93.2 80.0 - 100.0 fL [facility] MCH 31.3 27.0 - 33.0 pg [facility] MCHC 33.6 32.0 - 36.0 g/dL [facility] Comment: For adults, a slight decrease in the calculated MCHC value (in the range of 30 to 32 g/dL) is most likely not clinically significant; however, it should be interpreted with caution in correlation with other red cell parameters and the patient's clinical condition. RDW 13.1 11.0 - 15.0 % [facility] Platelet Count 145 140 - 400 Thousand/u L [facility] MPV 10.6 7.5 - 12.5 fL [facility] Neutrophil Absolute 2410 1500 - 7800 cells/uL [facility] Lymphocytes Absolute 1858 850 - 3900 cells/uL [facility] Absolute Monocytes 341 200 - 950 cells/uL [facility] Eosinophils Absolute 130 15 - 500 cells/uL [facility] Basophils Absolute 62 0 - 200 cells/uL [facility] Granulocytes % 50.2 % [facility] Lymphocytes % 38.7 % [facility] Monocytes % 7.1 % [facility] Eosinophils % 2.7 % [facility] Basophils % 1.3 % [facility] Comment: Test Performed at: [facility] [address] [place] [address] ??[phone] JERRICA NORWOOD MD 02/07/2024 10:0 1 AM IMAGING TECHNICIAN 02/07/2024 10:02 AM IMAGING TECHNICIAN Adrián Jimenez MD LAB - HEMATOLOGY ORD ERABLES Performing Organization Address [facility] Co de Phone Number [facility] [address] [place] [phone] * (ABNORMAL) COMPREHENSIVE METABOLIC PANEL (02/07/2024 10:01 AM IMAGING TECHNICIAN) Only the most recent of4 resultswithin the time period is included. Glucose 142(H) 65 - 99 mg/dL [facility] Comment: ? Fasting reference interval For someone without known diabetes, a glucose value >125 mg/dL indicates that they may have diabetes and this should be confirmed with a follow-up test. BUN 9 7 - 25 mg/dL [facility] Creatinine 0.81 0.50 - 1.03 mg/dL [facility] eGFR by Cystatin C 86 > OR = 60 mL/min/1. 73m2 [facility] BUN/Creatinine Ratio SEE NOTE: 6 - (calc) [facility] Comment: ?? Not Reported: BUN and Creatinine are within ?? reference range. ? Sodium 138 135 - 146 mmol/L [facility] Potassium 4.1 3.5 - 5.3 mmol/L [facility] Chloride 104 98 - 110 mmol/L [facility] CO2 25 20 - 32 mmol/L [facility] Calcium 9.2 8.6 - 10.4 mg/dL [facility] Protein Total 6.5 6.1 - 8.1 g/dL [facility] Albumin 3.9 3.6 - 5.1 g/dL [facility] Globulin Total 2.6 1.9 - 3.7 g/dL (calc) [facility] Albumin/Globulin Ratio 1.5 1.0 - 2.5 (calc) [facility] Bilirubin Total 0.6 0.2 - 1.2 mg/dL [facility] Alkaline Phosphatase 56 37 - 153 U/L [facility] AST 67(H) 10 - 35 U/L [facility] ALT 93(H) 6 - 29 U/L [facility] Comment: Test Performed at: [facility] [address] ??[phone] JERRICA NORWOOD MD 02/07/2024 10:0 1 AM IMAGING TECHNICIAN 02/07/2024 10:02 AM IMAGING TECHNICIAN Adrián Jimenez MD LAB - CHEMISTRY ORDE [facility] Organization Address City/State/ZIP Co de Phone Number [facility] [address] [place] [address] * HEPATITIS B SURFACE ANTIBODY (02/07/2024 10:01 AM IMAGING TECHNICIAN) Only the most recent of2 resultswithin the time period is included. Hepatitis B Virus Surface Antibody NON-REACTI VE NON-REACT HERNANDEZ [facility] Comment: Test Performed at: [facility] [address] [place] ??[phone] JERRICA NORWOOD MD 02/07/2024 10:0 1 AM IMAGING TECHNICIAN 02/07/2024 10:02 AM IMAGING TECHNICIAN Adrián Jimenez MD LAB - CHEMISTRY ANSHUL CAMARILLO Performing Organization Address [facility] de Phone Number [facility] [address] [place] [address] * BILIRUBIN DIRECT (02/07/2024 10:01 AM IMAGING TECHNICIAN) Only the most recent of4 resultswithin the time period is included. Bilirubin Direct 0.2 < OR = 0.2 mg/dL [facility] Comment: Test Performed at: [facility] [address] [place] ??[phone] JERRICA NORWOOD MD 02/07/2024 10:0 1 AM IMAGING TECHNICIAN 02/07/2024 10:02 AM IMAGING TECHNICIAN Adrián Jimenez MD LAB - CHEMISTRY ANSHUL CAMARILLO Performing Organization Address [facility] de Phone Number [facility] [address] [place] [phone] * CT ABDOMEN MULTI PHASE W CONT (08/20/2023 2:16 PM CDT) Anatomical Region Laterality Modality Abdomen Computed Tomogra phy 08/20/2023 2:22 PM CDT Impressions 08/21/2023 1:16 AM CDT Impression: 1.No CT evidence of hepatocellular carcinoma. 2.Caudate lobe hypertrophy and fissural widening likely reflect underlying hepatic parenchymal disease. 3.Splenomegaly measuring up to 15.6 cm in diameter. > Dictated by Lebron Barron MD (sr vice president). I, Hussein Pride MD have personally reviewed and interpreted this examination/study. > Interpreting Provider: Hussein Pride MD on 08/21/2023 1:16 AM Narrative 08/21/2023 1:16 AM CDT PROCEDURE: ??CT ABDOMEN MULTI PHASE W CONT, DATE/TIME OF EXAM: ??08/20/2023 2:18 PM, LOCATION ??[facility] INDICATION: K74.60: Cirrhosis of liver without ascites, unspecified hepatic cirrhosis type (HCC) COMPARISON: None. TECHNIQUE: CT of the abdomen was performed following the uneventful administration of 150 mL of Isovue 370 intravenous contrast according to a three-phase liver protocol. Multiplanar reconstructions and MIP images were produced. Findings: Lower Chest: Mild bilateral dependent atelectasis is present in the visualized lung bases. Hepatobiliary system Liver morphology: No liver surface nodularity is seen to suggest hepatic cirrhosis. There is caudate lobe hypertrophy and widening of the fissure suggesting fibrotic changes and mild diffuse parenchymal hypoattenuation likely reflecting hepatic steatosis. Varices: None. Spleen: The spleen is enlarged measuring up to 15.6 cm in axial diameter. Ascites: None. Focal liver observations Observations compatible with hepatocellular carcinoma by LI-RADS criteria: None. Indeterminate liver observations: None. Benign liver observations: None. Hepatic vasculature Portal and hepatic veins: Normal and patent. Arterial anatomy: Conventional. Gallbladder and bile ducts Gallbladder: Absent. Bile ducts: Nondilated intrahepatic ducts. Common bile duct is dilated, likely due to post-cholecystectomy state. Retroperitoneum Pancreas: Normal. Adrenals: Normal. Kidneys: Multiple subcentimeter hypoattenuating lesions in both kidneys are too small to characterize, but likely represent cysts. Lymph nodes: No lymphadenopathy. Gastrointestinal: The stomach and visualized loops of large and small bowel are unremarkable. The appendix is not seen; however, no inflammatory changes are seen in the right lower quadrant. Bones: Bone windows demonstrate no suspicious lytic or blastic lesions. The visible osseous structures are intact. Mild degenerative changes are seen in the spine. Soft tissues: Normal. Procedure Note Hussein Pride MD - 08/21/2023 PROCEDURE: CT ABDOMEN MULTI PHASE W CONT, DATE/TIME OF EXAM: 08/20/2023 2:18 PM, LOCATION [facility] INDICATION: K74.60: Cirrhosis of liver without ascites, unspecified hepaticcirrhosis type (HCC) COMPARISON: None. TECHNIQUE: CT of the abdomen was performed following the uneventful administration of 150 mL of Isovue 370 intravenous contrast according toa three-phase liver protocol. Multiplanar reconstructions and MIP imageswere produced. Findings: Lower Chest: Mild bilateral dependent atelectasis is present in the visualized lung bases. Hepatobiliary system Liver morphology: No liver surface nodularity is seen to suggest hepatic cirrhosis. There is caudate lobe hypertrophy and widening of the fissure suggesting fibrotic changes and mild diffuse parenchymal hypoattenuation likely reflecting hepatic steatosis. Varices: None. Spleen: The spleen is enlarged measuring up to 15.6 cm in axialdiameter. Ascites: None. Focal liver observations Observations compatible with hepatocellular carcinoma by LI-RADScriteria: None. Indeterminate liver observations: None. Benign liver observations: None. Hepatic vasculature Portal and hepatic veins: Normal and patent. Arterial anatomy: Conventional. Gallbladder and bile ducts Gallbladder: Absent. Bile ducts: Nondilated intrahepatic ducts. Common bile duct is dilated, likely due to post-cholecystectomy state. Retroperitoneum Pancreas: Normal. Adrenals: Normal. Kidneys: Multiple subcentimeter hypoattenuating lesions in both kidneysare too small to characterize, but likely represent cysts. Lymph nodes: No lymphadenopathy. Gastrointestinal: The stomach and visualized loops of large and small bowel areunremarkable. The appendix is not seen; however, no inflammatory changes are seen inthe right lower quadrant. Bones: Bone windows demonstrate no suspicious lytic or blastic lesions. The visible osseous structures are intact. Mild degenerative changes areseen in the spine. Soft tissues: Normal. Impression: 1.No CT evidence of hepatocellular carcinoma. 2.Caudate lobe hypertrophy and fissural widening likely reflectunderlying hepatic parenchymal disease. 3.Splenomegaly measuring up to 15.6 cm in diameter. > Dictated by Lebron Barron MD (sr vice president). I, Hussein Pride MD have personally reviewed and interpreted this examination/study. > Interpreting Provider: Hussein Pride MD on 08/21/2023 1:16 AM Adrián Jimenez MD CT ORDERABLES * VITAMIN D 1,25 DIHYDROXY (08/12/2023 3:10 PM CDT) Vitamin D Total 38 18 - 72 pg/mL [facility] Vitamin D3, 1,25 Dihydroxy 26 pg/mL [facility] Vitamin D, 25 Hydroxy 12 pg/mL [facility] Comment: (Note) Vitamin D3, 1,25(OH)2 indicates both endogenous production and supplementation. Vitamin D2, 1,25(OH)2 is an indicator of exogenous sources, such as diet or supplementation. Interpretation and therapy are based on measurement of Vitamin D, 1,25 (OH)2, Total. This test was developed, and its analytical performance characteristics have been determined by [employer]. It has not been cleared or approved by the FDA. This assay has been validated pursuant to the CLIA regulations and is used for clinical purposes. For additional information, please refer to http://education.Debitos.Peer5/faq/UCC497 (This link is being provided for informational/educational purposes only.) [facility] [address] [address],[address] [facility] [address] Nelli Hunt MD, PhD REPORT COMMENT: FASTING:NO Test Performed at: [facility] [address] [place] [address] [place] [address] ??[phone] NELLI HUNT MD,PHD 08/12/2023 3:10 PM CDT 08/12/2023 3:10 PM CDT Adrián Jimenez MD LAB - CHEMISTRY ANSHUL CAMARILLO Performing Organization Address [facility] Co de Phone Number [facility] [address] [place] [address] * MAGNESIUM BLOOD (08/12/2023 3:10 PM CDT) Magnesium 1.8 1.5 - 2.5 mg/dL [facility] Comment: Test Performed at: [facility] [address] [place], [place] ??[phone] JERRICA NORWOOD MD 08/12/2023 3:10 PM CDT 08/12/2023 3:10 PM CDT Adrián Jimenez MD LAB - CHEMISTRY ANSHUL CAMARILLO Performing Organization Address [facility] Co de Phone Number [facility] [address] [place] [address] * IR US GUIDE NEEDLE PLACEMENT (10/16/2022 1:17 PM CDT) Anatomical Region Laterality Modality Abdomen, Lung, Chest, Breast X-R ay Angiography 10/18/2022 11:0 6 PM CDT Impressions 10/18/2022 11:09 PM CDT Impression: Ultrasound-guided nontargeted core biopsy of liver, as detailed above. Note that the pathology report is pending at the time of this dictation. I, Dr. Farias, was present and performed/supervised the entire procedure. > Interpreting Provider: Silvano Farias on 10/18/2022 11:09 PM Narrative 10/18/2022 11:09 PM CDT PROCEDURE: ??IR US GUIDE NEEDLE PLACEMENT DATE/TIME OF EXAM: ??10/16/2022 2:26 PM CLINICAL INFORMATION: None relevant/not provided if blank. Indication: K76.0: NAFLD (nonalcoholic fatty liver disease) History: 52-year-old female with history of elevated liver enzymes and nonalcoholic fatty liver disease presenting to vascular and interventional radiology for biopsy for further evaluation. Operators: 1.Dr. Silvano Farias M.D., Attending Physician 2.Patrice Harris MS 4 Anesthesia: 1.Local anesthesia - 10 mL of 1% lidocaine 2.Intravenous analgesia- Fentanyl 50 mcg Procedure: 1.Limited ultrasound evaluation of the liver. 2.Ultrasound-guided nontargeted core biopsy of liver. Procedure in detail: The procedure, risk, and possible complications were explained to the patient in detail, and informed consent was obtained. The patient was placed in a supine position on the ultrasound table and a limited multiplanar ultrasound evaluation of the right hepatic lobe was performed, demonstrating right hepatic lobe. A percutaneous access site was marked on the skin. The marked site and skin around the region of interest was prepped and draped in sterile fashion. Pre-procedure time out was performed. Local anesthesia was provided with 1% Lidocaine. A 17 gauge coaxial needle system was advanced in stages under ultrasound guidance. The needle entry was documented. With the needle tip within the right hepatic lobe, 4 core samples were acquired with a 18 gauge biopsy gun. The samples were sent to the pathology service in formalin. Post-biopsy limited ultrasound evaluation did not show any immediate complications such as major hemorrhage. The patient tolerated the procedure well and was transferred to the holding area in stable condition. Procedure Note Silvano Farias MD - 10/18/2022 PROCEDURE: IR US GUIDE NEEDLE PLACEMENT DATE/TIME OF EXAM: 10/16/2022 2:26 PM CLINICAL INFORMATION: None relevant/not provided if blank. Indication: K76.0: NAFLD (nonalcoholic fatty liver disease) History: 52-year-old female with history of elevated liver enzymes and nonalcoholic fatty liver disease presenting to vascular andinterventional radiology for biopsy for further evaluation. Operators: 1.Dr. Silvano Farias M.D., Attending Physician 2.Patrice Harris MS 4 Anesthesia: 1.Local anesthesia - 10 mL of 1% lidocaine 2.Intravenous analgesia- Fentanyl 50 mcg Procedure: 1.Limited ultrasound evaluation of the liver. 2.Ultrasound-guided nontargeted core biopsy of liver. Procedure in detail: The procedure, risk, and possible complications were explained to the patient in detail, and informed consent was obtained. The patient was placed in a supine position on the ultrasound table and a limited multiplanar ultrasound evaluation of the right hepatic lobe wasperformed, demonstrating right hepatic lobe. A percutaneous access site was markedon the skin. The marked site and skin around the region of interest was prepped and draped in sterile fashion. Pre-procedure time out was performed. Local anesthesia was provided with 1% Lidocaine. A 17 gauge coaxialneedle system was advanced in stages under ultrasound guidance. The needleentry was documented. With the needle tip within the right hepatic lobe, 4core samples were acquired with a 18 gauge biopsy gun. The samples were sentto the pathology service in formalin. Post-biopsy limited ultrasound evaluation did not show any immediate complications such as major hemorrhage. The patient tolerated theprocedure well and was transferred to the holding area in stable condition. Impression: Ultrasound-guided nontargeted core biopsy of liver, asdetailed above. Note that the pathology report is pending at the time of this dictation. I, Dr. Farias, was present and performed/supervised the entireprocedure. > Interpreting Provider: Silvano Farias on 10/18/2022 11:09 PM Adrián Jimenez MD IR ORDERABLES * PATHOLOGY TISSUE (10/16/2022 1:11 PM CDT) Case Report Surgical Pathology Report ? Case: [id number] ? Authorizing Provider: ??Adrián Jimenez MD ? Collected: ? 10/16/2022 01:11 PM ? Ordering Location: ? [facility] ?Received: ?10/16/2022 01:26 PM ? Pathologist: ? Lori Betetncourt MD ? Specimen: ?Liver Needle Biopsy, liver bx ? 10/17/2022 5:17 PM CDT [facility] Final Diagnosis Liver, biopsy (A): - Steatohepatitis with marked steatosis, ballooning, and moderate inflammation, NAFLD activity score 7 - Cirrhosis 10/17/2022 5:17 PM CDT [facility] Microscopic Description and Comment The liver is cirrhotic, with variably small to medium sized nodules surrounded by moderately thick fibrotic septa. There is severe macrovesicular steatosis (~80%) in an azonal to panacinar distribution. There are several classic ballooned hepatocytes with Elvira Denk bodies in multiple areas. Lobular inflammation is especially prominent in perivenular regions, but moderate overall (2-4 foci/20x field on average). The portal tracts have mostly mild chronic inflammation, without interface activity or plasma cells. There is no ductular reaction or features chronic cholestatic liver disease. The trichrome and reticulin stains highlight cirrhosis and the trichrome stain highlights residual dense perisinusoidal fibrosis. The PAS-D stain is negative for A1AT globules. The iron stain is negative. In a clinical setting of FERNANDEZ, the NAFLD activity score would be 7/8 (steatosis-3, inflammation-2, ballooning-2) and stage would be 4. 10/17/2022 5:17 PM [facility] Clinical History The patient is a 52-year-old woman who presents for NAFLD staging. Operative procedure: Ultrasound-guided core biopsy of the liver. 10/17/2022 5:17 PM [facility] Gross Description The requisition and specimen(s) are identified with the patient's name, Gracia Smith. Received in formalin, specimen A , is 4 cylindrical mistry-velazquez fragments which are 1.5, 1.3, 1.6 and 1.8 cm. The each have a diameter of 0.1 cm. Submitted entirely as A1. 10/17/2022 5:17 PM [facility] Pathologist Location at [facility] 10/17/2022 5:17 PM [facility] Disclaimer The performance characteristics of all immunohistochemical and indirect immunofluorescence stains (if any) cited in this report were determined by the Histopathology Laboratory of [facility]. Some of these tests were developed by our own laboratory and have not been cleared or approved by the US Food and Drug Administration. The FDA does not require this test to go through premarket FDA review. These tests are used for clinical purposes. They should not be regarded as investigational or for research. This laboratory is certified under the Clinical Laboratory Improvement Amendments (CLIA) as qualified to perform high complexity clinical laboratory testing. This case has been personally reviewed and interpreted by the attending (teaching) pathologist. 10/17/2022 5:17 PM [facility] Collected By Cathi Jordan RN 5:17 PM [facility] Embedded Images 10/17/2022 5:17 PM [facility] Pathology/Cytolo gy NEEDLE BIOPSY OF LIVER / Unknown Collection / Unknown 10/16/2022 1:11 PM CDT 10/16/2022 1:26 PM CDT Adrián Jimenez MD LAB - PATHOLOGY/CYTO LOGY ORDERABLES [facility] [address] [place] [address], [facility] [phone] * (ABNORMAL) GLUCOSE - POINT OF CARE (10/16/2022 10:33 AM CDT) Glucose WB/POC 156(H) 70 - 115 mg/dL 10/16/2022 11:41 AM CDT [facility] Specimen Type Venous 10/16/2022 11:41 AM CDT [facility] Blood BLOOD SPECIMEN / Unknown 10/16/2022 10:33 AM CDT 10/16/2022 11:41 AM CDT Adrián Jimenez MD LAB - POINT OF CARE ORDERABLES Performing Organization Address [facility] Co de Phone Number [facility] [address] [place] [address], [facility] [phone] * PT-INR [facility] (10/16/2022 10:31 AM CDT) Pathologist [facility] PT 13.7 12.1 - 14.8 Seconds 10/16/2022 10:55 AM CDT [facility] INR 1.1 See Comment 10/16/2022 10:55 AM CDT [facility] Comment:The suggested therap eutic range for standard coumadin (warfarin) therapy is an INR of 2.0-3.0. For high-risk patients (Mechanical Mitral Valve Prosthesis, etc.), the suggested prophylactic therapeutic range is an INR of 2.5-3.5. Blood BLOOD SPECIMEN / Unknown Venipuncture / Unknown 10/16/2022 10:31 AM CDT 10/16/2022 10:36 AM CDT Silvano Farias MD LAB - COAGUL ATION ORDERABLES [facility] [address] [place] [address], [facility] [phone] * US ELASTOGRAPHY (09/04/2022 8:47 AM CDT) Anatomical Region Laterality Modality Abdomen Ultrasound 09/04/2022 8:17 AM CDT Impressions 09/04/2022 12:00 PM CDT IMPRESSION: 1.Diffuse hepatic steatosis without discrete hepatic lesion or intrahepatic biliary dilatation. Liver and spleen size normal. 2.Status post cholecystectomy. 3.Median liver stiffness was 6.55 kPa: In the absence of other known clinical signs, compensated advanced chronic liver disease is excluded. Otherwise, further testing is indicated for confirmation. Reference: Torin Ralph, Cindy Acevedo, Magalys Martini, Sindhu Fernandez, and Sherley Sharma. Update to the society of radiologists in ultrasound liver elastography consensus statement. Radiology 296, no. 2 (2020): 263-274. > Dictated by Jameson Hernandez MD (sr vice president). I, Hussein Pride MD have personally reviewed and interpreted this examination/study. > Interpreting Provider: Hussein Pride MD on 09/04/2022 12:00 PM Narrative 09/04/2022 12:00 PM CDT PROCEDURE: ??US ABDOMEN LIMITED, US ELASTOGRAPHY, DATE/TIME OF EXAM: 09/04/2022 7:46 AM, LOCATION ??[facility] INDICATION: R74.8: Elevated liver enzymes Z11.59: Encounter for screening for other viral diseases COMPARISON: None. FINDINGS: Liver: The liver is increased in echogenicity, consistent with diffuse hepatic steatosis. There is smooth liver surface contour. No discrete hepatic mass or intrahepatic biliary dilatation is seen. Color Doppler evaluation demonstrates patency of the hepatic and portal veins. No ascites is present. Gallbladder: The gallbladder is absent. The common bile duct is nondilated, measuring 4 mm. Right kidney: The right kidney measures 10.8 x 5.3 x 4.7 cm, volume: 140 mL. Limited views of the right kidney reveal no evidence of nephrolithiasis or hydronephrosis. Spleen: The spleen measures 11.9 cm in length. Pancreas: The visible pancreas is normal in echogenicity. Elastography: Liver measurements were obtained on a [employer] E9) using a curvilinear probe following SRU guidelines. 12 measurements were obtained using 2D shear wave sonography (2D SWE) measurements with minimal and maximal outliers discarded. The ZCI-bq-cugiix ratio was 21.7%, suggesting a high quality data. ?? The acoustic radiation force impulse (ARFI) liver stiffness value was 6.55 kPa. A liver stiffness value of less than 7 kPa rules out significant fibrosis. In the absence of other known clinical signs, result excludes compensated advanced chronic liver disease (cACLD). ?? Procedure Note Hussein Pride MD - 09/04/2022 PROCEDURE: US ABDOMEN LIMITED, US ELASTOGRAPHY, DATE/TIME OF EXAM: 09/04/2022 7:46 AM, LOCATION [facility] INDICATION: R74.8: Elevated liver enzymes Z11.59: Encounter for screening for other viral diseases COMPARISON: None. FINDINGS: Liver: The liver is increased in echogenicity, consistent with diffuse hepatic steatosis. There is smooth liver surface contour. No discrete hepatic mass or intrahepatic biliary dilatation is seen. Color Doppler evaluation demonstrates patency of the hepatic and portal veins. Noascites is present. Gallbladder: The gallbladder is absent. The common bile duct isnondilated, measuring 4 mm. Right kidney: The right kidney measures 10.8 x 5.3 x 4.7 cm, volume: 140 mL. Limited views of the right kidney reveal no evidence ofnephrolithiasis or hydronephrosis. Spleen: The spleen measures 11.9 cm in length. Pancreas: The visible pancreas is normal in echogenicity. Elastography: Liver measurements were obtained on a [employer] E9) using a curvilinear probe following SRU guidelines. 12 measurements wereobtained using 2D shear wave sonography (2D SWE) measurements with minimal and maximal outliers discarded. The DSZ-op-gfuxlx ratio was 21.7%, suggestinga high quality data. The acoustic radiation force impulse (ARFI) liver stiffness value was6.55 kPa. A liver stiffness value of less than 7 kPa rules out significant fibrosis. In the absence of other known clinical signs, result excludes compensated advanced chronic liver disease (cACLD). IMPRESSION: 1.Diffuse hepatic steatosis without discrete hepatic lesion orintrahepatic biliary dilatation. Liver and spleen size normal. 2.Status post cholecystectomy. 3.Median liver stiffness was 6.55 kPa: In the absence of other known clinical signs, compensated advanced chronic liver disease is excluded. Otherwise, further testing is indicated for confirmation. Reference: Torin Ralph, Cindy Acevedo, Magalys Martini, Sindhu Fernandez, and Sherley Sharma. Update to the society ofradiologists in ultrasound liver elastography consensus statement. Radiology 296, no.2 (2020): 263-274. > Dictated by Jameson Hernandez MD (sr vice president). I, Hussein Pride MD have personally reviewed and interpreted this examination/study. > Interpreting Provider: Hussein Pride MD on 09/04/2022 12:00 PM Adrián Jimenez MD US ORDERABLES * HEPATITIS C AB W/RFLX TO HCV RNA QN PCR (08/14/2022 1:36 PM CDT) Hepatitis C Antibody NON-REACTI VE NON-REACT HERNANDEZ [facility] Comment: HCV antibody was non-reactive. There is no laboratory evidence of HCV infection. In most cases, no further action is required. However, if recent HCV exposure is suspected, a test for HCV RNA (test code 34905) is suggested. For additional information please refer to http://education.MeeGenius/faq/FXV13w1 (This link is being provided for informational/ educational purposes only.) REPORT COMMENT: FASTING:YES Test Performed at: [facility] [address] [place], [place] ??[phone] JERRICA NORWOOD MD Blood BLOOD SPECIMEN / Unknown 08/14/2022 1:36 PM CDT 08/14/2022 1:36 PM CDT Adrián Jimenez MD LAB - CHEMISTRY ANSHUL CAMARILLO [facility] Organization Address City/State/ZIP Co de Phone Number [facility] [address] [place] [address] * IRON + TIBC + FERRITIN (08/14/2022 1:36 PM CDT) Iron 66 45 - 160 mcg/dL [facility] TIBC 361 250 - 450 mcg/dL (calc) [facility] % Saturation 18 16 - 45 % (calc) [facility] Ferritin 116 16 - 232 ng/mL [facility] Comment: Test Performed at: [facility] [address] [place], [place] ??[address] JERRICA NORWOOD MD Blood BLOOD SPECIMEN / Unknown 08/14/2022 1:36 PM CDT 08/14/2022 1:36 PM CDT Adrián Jimenez MD LAB - CHEMISTRY ANSHUL CAMARILLO Performing Organization Address [facility] de Phone Number [facility] [address] [place] [address] * MARIANA BLOOD SCREEN W/REFLEX TITER (08/14/2022 1:36 PM CDT) MARIANA Screen NEGATIVE NEGATIVE [facility] Comment: MARIANA IFA is a first line screen for detecting the presence of up to approximately 150 autoantibodies in various autoimmune diseases. A negative MARAINA IFA result suggests an MARIANA-associated autoimmune disease is not present at this time, but is not definitive. If there is high clinical suspicion for Sjogren's syndrome, testing for anti-SS-A/Ro antibody should be considered. Anti-Delores-1 antibody should be considered for clinically suspected inflammatory myopathies. AC-0: Negative International Consensus on MARIANA Patterns (https://doi.org/10.1515/plpb-1574-6546) For additional information, please refer to http://education.Debitos.Peer5/faq/RRL951 (This link is being provided for informational/ educational purposes only.) ?? Test Performed at: [facility] [address] [place], [place] ??[address] JERRICA NORWOOD MD Blood BLOOD SPECIMEN / Unknown 08/14/2022 1:36 PM CDT 08/14/2022 1:36 PM CDT Adrián Jimenez MD LAB - CHEMISTRY ANSHUL CAMARILLO Performing Organization Address [facility] Co de Phone Number [facility] [address] [place] [address] * CERULOPLASMIN (08/14/2022 1:36 PM CDT) Pathologist [facility] Ceruloplasmin 32 18 - 53 mg/dL [facility] Comment: Test Performed at: [facility] [address] [place], [place] ??[phone] JERRICA NORWOOD MD Blood BLOOD SPECIMEN / Unknown 08/14/2022 1:36 PM CDT 08/14/2022 1:36 PM CDT Adirán Jimenez MD LAB - CHEMISTRY ORDKeysha CAMARILLO Performing Organization Address [facility] Co de Phone Number [facility] [phone] [place] [address] * [id number] BLOOD (08/14/2022 1:36 PM CDT) Pathologist [facility] Augbc-7-Xtpmxgch sin 193 83 - 199 mg/dL [facility] Comment: Test Performed at: [facility] [address] [place], [place] ??[phone] JERRICA NORWOOD MD Blood BLOOD SPECIMEN / Unknown 08/14/2022 1:36 PM CDT 08/14/2022 1:36 PM CDT Adrián Jimenez MD LAB - CHEMISTRY ANSHUL CAMARILLO Performing Organization Address [facility] Co de Phone Number [facility] [phone] [place] [address] * SMOOTH MUSCLE ANTIBODY (08/14/2022 1:36 PM CDT) Pathologist [facility] Actin Antibody IgG <20 <20 U [facility] Comment: Reference Range: ?? <20 U: Negative >or=20 U: Positive ? Antibodies recognizing actin are the main component of smooth muscle antibodies associated with auto- immune liver disease. Actin antibodies are found in approximately 75% of patients with autoimmune hepatitis (AIH) type 1, approximately 65% of patients with autoimmune cholangitis, approximately 30% of patients with primary biliary cirrhosis and approximately 2% of healthy controls. High values are closely correlated with AIH type 1. Test Performed at: [facility]/[address] ??[phone] EVIE ASHFORD MD,PHD Blood BLOOD SPECIMEN / Unknown 08/14/2022 1:36 PM CDT 08/14/2022 1:36 PM CDT Adrián Jimenez MD LAB - SEROLOGY ORDER PAUL Performing Organization Address [facility] [place] [place] [address] * HEPATITIS B CORE ANTIBODY TOTAL (08/14/2022 1:36 PM CDT) Hepatitis B Core Virus Antibody Total NON-REACTI VE NON-REACT HERNANDEZ [facility] Comment: For additional information, please refer to http://Tengion.MeeGenius/faq/YIA942 (This link is being provided for informational/ educational purposes only.) Test Performed at: [facility] [address] [place], [place] ??[phone] JERRICA NORWOOD MD Blood BLOOD SPECIMEN / Unknown 08/14/2022 1:36 PM CDT 08/14/2022 1:36 PM CDT Adrián Jimenez MD LAB - [facility] Performing Organization Address [facility] [place] [address] * HEPATITIS B SURFACE ANTIGEN W RFLX CONFIRMATION (08/14/2022 1:36 PM CDT) Hepatitis B Virus Surface Antigen NON-REACT HERNANDEZ NON-REACT HERNANDEZ [facility] Comment: For additional information, please refer to http://Tengion.MeeGenius/faq/DKH427 (This link is being provided for informational/ educational purposes only.) Test Performed at: [facility] [address] [place], [place] ??[phone] JERRICA NORWOOD MD Confirmation [facility] Comment: Test Performed at: [facility] [address] [facility] [place] ??[phone] JERRICA NORWOOD MD Blood BLOOD SPECIMEN / Unknown 08/14/2022 1:36 PM CDT 08/14/2022 1:36 PM CDT Adrián Jimenez MD LAB - CHEMISTRY ANSHUL CAMARILLO Performing Organization Address [facility] Co de Phone Number [facility] [phone] [place] [address] * (ABNORMAL) GGT (08/14/2022 1:36 PM CDT) GGT 135(H) 3 - 70 U/L [facility] Comment: Test Performed at: [email or web address] [address] [place], [place] ??[phone] JERRICA NORWOOD MD Blood BLOOD SPECIMEN / Unknown 08/14/2022 1:36 PM CDT 08/14/2022 1:36 PM CDT Adrián Jimenez MD LAB - CHEMISTRY ANSHUL CAMARILLO Performing Organization Address [facility] Co de Phone Number [facility] [phone] [place] [address] * IGG BLOOD (08/14/2022 1:36 PM CDT) IgG 933 600 - 1640 mg/dL [facility] Comment: Test Performed at: [facility] [address] [place], [place] ??[phone] JERRICA NORWOOD MD Blood BLOOD SPECIMEN / Unknown 08/14/2022 1:36 PM CDT 08/14/2022 1:36 PM CDT Adrián Jimenez MD LAB - CHEMISTRY ANSHUL CAMARILLO Performing Organization Address [facility] Co de Phone Number [facility] [phone] [place] [phone] * (ABNORMAL) HEPATITIS A ANTIBODY (08/14/2022 1:36 PM CDT) Hepatitis A Virus Antibody Total REACTIVE(A ) NON-REACT HERNANDEZ [facility] Comment: For additional information, please refer to http://education.MeeGenius/faq/AMG730 (This link is being provided for informational/ educational purposes only.) Test Performed at: [facility] [address] [place], [place] ??[address] JERRICA NORWOOD MD Blood BLOOD SPECIMEN / Unknown 08/14/2022 1:36 PM CDT 08/14/2022 1:36 PM CDT Adrián Jimenez MD LAB - CHEMISTRY ORDE [facility] Organization Address City/State/ZIP Co de Phone Number [address] [address] [place] [address] * ME LIVER ELASTOGRAPHY (08/14/2022 11:31 AM CDT) Narrative Constantino-Rigo Wall MD - 08/14/2022 11:31 AM CDT Rigo Wall MD ? 08/14/2022 ??2:09 PM Diagnosis: Elevated liver enzymes RN verified patient not , no implanted devices and NPO for prior 3 hours. Procedure explained. Date of Exam: 08/14/2022 Liver Stiffness: (LSM, kPa) median: ??23.0 IQR (interquartile range): ?? 6.2 IQR/Median% (ideally < 30%): ??27% CAP (controlled attenuation parameter): ??310 Technical Difficulty: None Ordering Provider: Dr. Jimenez Phone Fax Fibroscan interpretation: I have personally reviewed the Fibroscan report and associated tracings. The calculated Liver Stiffness Measurement (LSM, kPa) indicates that: The probability of advanced liver fibrosis is: very high and the probability of complications of portal hypertension is also high.. The loss of ultrasound signal, (controlled attenuation parameter, CAP [dB/m]), indicates that the probability of hepatic steatosis is: high. Rigo Wall MD The following criteria are used to indicate the probability of advanced (stage 3-4) fibrosis: < 7.0 kPa: low 7.0-8.9 kPa: low to moderate 9.0-14.9 kPa: moderate 15-20 kPa: high > 20 kPa: very high Liver stiffness > 20 kPa is also associated with a high probability of complications of portal hypertension including varices and ascites. Liver stiffness > 50 kPa is associated with a high risk of variceal bleeding. These interpretations are based on the following published data: Eddowes PJ, Rachel M, Jumana M, et al. Accuracy of FibroScan controlled attenuation parameter and liver stiffness measurement in assessing steatosis and fibrosis in patients with nonalcoholic fatty liver disease. Gastroenterology 2019;156:2412-1178. Livia MS, Jocelin R, Van Natdon ML, et al. Vibration-controlled transient elastography to assess fibrosis and steatosis in patients with nonalcoholic fatty liver disease. Clin Gastroenterol Hepatol 2019;17:156-163. Note that scores have been developed that incorporate the Fibroscan liver stiffness measurement from large cohorts of patients with liver biopsies to further refine the ability of Fibroscan to identify patients ??with FERNANDEZ and advanced fibrosis. These include the FAST (Fibroscan-AST) score (Bebeto, 202) and the Agile3+ and Agile4 scores (Radha, 202). Bebeto TA, Van Natta ML, Leti M, Carter A, et al. Validation of the accuracy of the FAST score for detecting patients with at-risk nonalcoholic steatohepatitis (FERNANDEZ) in a [place] cohort and comparison to other non-invasive algorithms. PLoS ONE (2021) 17: [id number]. Radha AJ, Herman J, Younrosalva ZM, et al. Enhanced diagnosis of advanced fibrosis and cirrhosis in individuals with NAFLD using FibroScan-based Agile scores. J Hepatol (2022) 78: 247-259. Fibroscan LSM can also be used with laboratory parameters without formulas to assess prognosis. According to the Baveno-VII criteria (Lizarraga, 2021), Fibroscan LSM ?15 kPa plus a platelet count of ?078u221/L rules out clinically significant portal hypertension (sensitivity and negative predictive value >90%) in patients with compensated advanced chronic liver disease. Lizarraga R, Ainsley J, Mandeep-Lukasz G, Rejosé miguel T, Aron C on behalf of the Baveno VII Faculty. Baveno VII--Renewing consensus in portal hypertension. J Hepatol (2021) 76: 959-974 Assessing the likelihood of advanced fibrosis in patients with indeterminate liver stiffness measurement (LSM) by Fibroscan (e.g., 8-15 kPa) can be improved by also calculating the FIB-4 score (Sara et al. Hepatology Communications 2019;3:3931-7734) or NAFLD Fibrosis score (Lynne et al. Clinical Gastroenterology and Hepatology 2019;17:9542-4347 using ??routine clinical data. Note: 1. Fibroscan cannot reliably identify earlier stages of fibrosis (ie distinguish F0 from F1 and F2) and thus a histologic stage cannot be predicted from the Fibroscan reading. 2. Liver stiffness can be increased by factors other than fibrosis including passive congestion, infiltrative processes, active alcoholism, recent moderate alcohol consumption in the 2 weeks before the exam, ??biliary obstruction and marked inflammation. The interpretation of the Fibroscan result provided above may not have taken such clinical factors into account. Disease etiology also influences Fibroscan cutoff values for fibrosis stages and the following cutoffs have been proposed (Juan et al, Clin Gastro Hepatol 2015; 13:27-36): Cutoffs for Stage 3 and Stage 4 fibrosis respectively: Hepatitis B: >9 and >11.7 kPa Hepatitis C: >9.5 and >12.5 kPa HCV-HIV: >11 and >14 kPa Cholestatic liver diseases: >10 and >17.9 kPa NAFLD/FERNANDEZ: >10 and >14 kPa CAP estimates of steatosis: normal <200 dB/m mild 200 to 250 dB/m moderate 250-290 dB/m substantial > 290 dB/m (Note that Fibroscan is not a quantitative measure of liver fat.) These criteria are estimates and may change as additional supporting data becomes available. (This additional interpretive data was last updated 06/23/22.) [email or web address] Adrián Jimenez MD PROCEDURE/MINOR SURG ICAL ORDERABLES Care Teams Sql Ssrs Developer Relationship Specialty Start Date End Date Carmelo Law MD [address] [place] [address] PCP - General Family Medicine 06/26/22
--- OUTSIDE RECORDS SUMMARY | 2024-03-17 15:55 | XMS_ITS ---
Author Organization [facility] [address] Address [address] [place] [address] Care Team Providers Care Hog Trader Name Role Phone Carmelo Law MD Primary Care Provider Transplant Episode Kidney Potential Donor [facility] ([place], [place]) - [facility] Referred on 10/23/2019 Marked as Active on 10/23/2019 Reason: Pending Clinical Review Kidney CoordinatorAco Na Howard MD Fax: N/A Email: N/A Care Team Name Role Phone Fax Email Aco Na Howard MD Kidney Coordinator N/A N/A Events Pre-Donation Referred: 10/23/2019
--- OUTSIDE RECORDS SUMMARY | 2024-03-17 15:55 | XMS_ITS | Clinical Summary ---
Author Organization [facility] Address [address], [facility] [address] [place] [address] Phone Care Team Providers Care Dialysis Equipment Technician Name Role Phone Guero cMkeon Primary Care Provider [phone] Orlando Buck MD Unavailable [phone] Zhanna Gonzalez APRN, STAFF NURSE MIDWIFE Unavailable [phone] Allergies No known active allergies Medications ALPRAZolam (XANAX) 0.25 MG Tablet Take 0.25 mg by mouth daily as needed. Active celecoxib (CeleBREX) 100 MG Capsule Take 100 mg by mouth 2 times daily as needed. Active cyclobenzaprine (FLEXERIL) 10 MG Tablet Take 10 mg by mouth 2 times daily as needed. Active levothyroxine (SYNTHROID) 150 MCG Tablet Take 150 mcg by mouth daily. Active losartan (COZAAR) 50 MG Tablet Take 50 mg by mouth daily. Active rizatriptan (MAXALT-THERAPIST RADIATION) 10 MG TABLET DISPERSIBLEIndic ations:Chronic migraine w/o aura w/o status migrainosus, not intractable Take 1 Tablet by mouth once as needed for Migraine. 10 Tablet 2 08/14/2022 Active Active Problems No known active problems Family History Medical History Relation Name Comments Bladder cancer Father Heart Attack Father Relation Name Status Comments Father Social History Tobacco Use Types Packs/Day Years Used Date Smoking Tobacco: Former Cigarettes Smokeless Tobacco: Never Tobacco Cessation:Counseling Given: Not Answered Alcohol Use Standard Drinks/Week Comments Yes 0 (1 standard drink = 0.6 oz pur e alcohol) occasional Comments Unknown Sex and Gender Information Value Date Recorded Sex Assigned at Not on file Legal Sex Female 11:53 AM AIRPORT SECURITY SCREENER Gender Identity Not on file Sexual Orientation Not on file Last Filed Vital Signs Vital Sign Reading Time Taken Comments Blood Pressure 118/70 11/30/2022 1:40 PM CDT Pulse 99 11/30/2022 1:40 PM CDT Temperature 36 ??C (96.8 ??F) 11/30/2022 1:40 PM CDT Respiratory Rate 20 11/30/2022 1:40 PM CDT Oxygen Saturation 95% 11/30/2022 1:40 PM CDT Inhaled Oxygen Concentration - - Weight 123.4 kg (272 lb) 11/30/2022 1:40 PM CDT Height 172.7 cm (5' 8 ) 11/30/2022 1:40 PM CDT Body Mass Index 41.36 11/30/2022 1:40 PM CDT Plan of Treatment Health Maintenance Due Date Last Done Comments Hepatitis C Virus (HCV) Screening 1968 TdaP Immunization 1968 Pap Smear 1989 Cervical Cancer Screening (CCS) 1998 HPV/Cotest 1998 Hepatitis B Immunization (3 of 3 - 19+ 3-dose series) 04/30/2002 12/30/2001, 10/31/2001 Colonoscopy 2013 Colorectal Cancer Screening 2013 Cologuard 2018 Immunochemical Fecal Occult Blood 2018 Mammogram 2018 Pneumococcal Immunization (5 0+ years) (1 of 1 - PCV) 2018 Zoster Immunization (1 of 2) 2018 Influenza Immunization (#1) 2023 SARS-COV-2 Immunization ( - 2023-25 season) 2023 Respiratory Syncytial Virus (RSV) Immunization (Adult) (1 - 1-dose 75+ series) 08/24/2043 DTaP/Tdap/Td Immunization Discontinued 10/31/2001 Meningococcal Immunization (ACWY) Aged Out No longer eligible based on patient's age to complete this topic Pneumococcal Immunization Combined Aged Out No longer eligible based on patient's age to complete this topic Rotavirus Immunization Aged Out No lo nger eligible based on patient's age to complete this topic Insurance Care Teams Dialysis Equipment Technician Relationship Specialty Start Date End Date Mike Guero [address] [place] [address] PCP - General Family Medicine 02/16/21 Orlando Buck MD [address] [place] [address] Consulting Physician Neurology 11/28/22 Zhanna Gonzalez, PROFESSOR/NURSE ANESTHETIST, STAFF NURSE MIDWIFE [address] [place] [address] Nurse Practitioner Advanced Practice Nurse 08/14/22
--- OUTSIDE RECORDS SUMMARY | 2024-03-17 15:55 | XMS_ITS | Encounter Summary ---
Author Organization [facility] Address [address] [place] [address] Phone Care Team Providers Care Rubber Stamp Maker Name Role Phone Inderjit Jewell DO Primary Care Provider [phone] Miscellaneous, Not In File Primary Care Provider Unavailable No, Physician Primary Care Provider [phone] Carmelo Law MD Primary Care Provider [phone] Encounter Details Date Type Department Care Team (Late st Contact Info) Description 03/20/2020 Orders Only [facility] Scanning, Provider Social History Tobacco Use Types Packs/Day Years Used Date Smoking Tobacco: Smoker, Current Status Unknown Alcohol Use Standard Drinks/Week Comments Yes 0 (1 standard drink = 0.6 oz pur e alcohol) Comments No Sex and Gender Information Value Date Recorded Sex Assigned at Not on file Legal Sex Female 8:20 AM DELIVERY DRIVER/SUPERVISOR Gender Identity Female 12/06/2020 9:10 AM CDT Sexual Orientation Straight 03/07/2019 5: 53 PM DELIVERY DRIVER/SUPERVISOR documented as of this encounter Plan of Treatment Not on file documented as of this encounter Procedures Procedure Name Priority Date/Time Associated Diagnosis Comments SCAN - RADIOLOGY/IMAGING 03/20/2020 documented in this encounter Results * SCAN - RADIOLOGY/IMAGING (03/20/2020) Anatomical Region Laterality Modality Other us Provider Scanning Final Result documented in this encounter Visit Diagnoses Not on filedocumented in this encounter Additional Health Concerns Infection Onset Date Last Indicated Resolved Time COVID: Suspected 03/20/2020 03/20/2020 03/20/2020 4:27 PM DELIVERY DRIVER/SUPERVISOR Respiratory Infection (CONTRERAS), contact + droplet Comment:Automatically added due to negative COVID-19 result. 03/20/2020 03/20/2020 03/21/2020 11: 29 AM DELIVERY DRIVER/SUPERVISOR COVID: Suspected 03/07/2021 03/07/2021 03/07/2021 12:39 PM DELIVERY DRIVER/SUPERVISOR COVID19 03/07/2021 03/07/2021 03/17/2021 3:07 AM DELIVERY DRIVER/SUPERVISOR documented as of this encounter Care Teams Rubber Stamp Maker Relationship Specialty Start Date End Date Inderjit Jewell DO PCP - General Family Medicine 03/02/19 10/16/20 Miscellaneous, Not In File PCP - General 10/17/2011/28 No, Physician PCP - General 11/29/20 12/05/21 Carmelo Law MD [address] [facility] [place] [address] PCP - General Family Medicine 12/06/21 documented as of this encounter
--- OUTSIDE RECORDS SUMMARY | 2024-03-17 15:55 | XMS_ITS | Continuity of Care Document ---
Author Organization [facility] Address [address] [facility] [place] [address] Phone Care Team Providers Care Surfacing Technician Name Role Phone Guero Mckeon MD Unavailable Unavailable Allergies, Adverse Reactions, Alerts Substance Reaction Status Criticality No Known Allergies Active No Inform ation Medications Medication Instructions Dosage Effective Dates (start - stop) Status Comments Xanax 0.25 mg tablet take 1 tablet by oral route every day as needed 0.25 MG - Active PRN for anxiety, avoid driving or operate machines Eliquis 5 mg tablet take 1 tablet by oral route 2 times every day 5 MG - Active Maxalt 10 mg tablet take 1 tablet by oral route once, may repeat at 2 hour intervals; do not exceed 30 mg in 24 hours as needed - Active losartan 25 mg tablet take 1 tablet by oral route every day 25 MG - Active Topamax 50 mg tablet take 3 tablet by oral route at bedtime - Active Synthroid 150 mcg tablet take 1 tablet by oral route every day 150 MCG - Active Procedures Procedure Date OFFICE/OUTPATIENT VISIT, EST OFFICE/OUTPATIENT VISIT, EST PREV VISIT, NEW, AGE 40-64 Advance Directives Directive Yes / No Effective Date File Name No Information Encounters Encounter Description Practice Location Reason(s) For Visit Diagnoses Date Provider Providers Copied on Encounter [facility], [address] [facility] [place], [id number], [place] tel:[phone] [facility] No Information 2 Mike Jack. [address], [place], [place], [address] , [place]. tel:[phone] OFFICE/OUTPA TIENT VISIT, EST [facility], [address], [place], [place], [address], [place] tel:[phone] [facility] fatty liver1 (chief complaint) fatigue1 (chief complaint) breast nodule1 (chief complaint) DVT1 (chief complaint) anxiety1 (chief complaint) Fatty liverIron deficiencyFatigueLu mp in breastPulmonary embolismGeneralized Anxiety DisorderMigraine 1 Mike [facility] [address], [address], [place], [place], [address] , [place]. tel:[phone] [facility], [address], [place], [place], [address], [place] tel:[phone] [facility] No Information 1 Mike Chi [address], [place], [place], [address] , [place]. tel:[phone] OFFICE/OUTPA TIENT VISIT, [facility], [address] [place], [address], [place] tel:[phone] [facility] glucose1 (chief complaint) LFT (chief complaint) anemia1 (chief complaint) postmeno (chief complaint) headache1 (chief complaint) thyroid1 (chief complaint) Liver diseaseAnemiaHyperg lycemiaAmenorrheaMi graineFatigueHypoth yroidism 1 Mike Chi [address], [address], [place], [place], [address] , [place]. tel:[phone] PREV VISIT, NEW, AGE 40-64 [facility], [address], [place], [place], [address], [place] tel:[phone] [facility] physical (chief complaint) Encounter for general adult medical examination without abnormal findings 1 Mike Chi [address], [place], [place], [address] , [place]. tel:[phone] Family History Family Member Type Diagnosis Age At Onset Father Problem Coronary artery disease 45 Mother Problem DVT left leg Payers Payer name Insurance type Covered green party ID Authorgisela ticolten(s) No Information Social History Type Description Quantity Date Captured Comments Alcohol Use Details Unknown Caffeine Use Details Unknown Tobacco Use Status No Information Smoking Status No Information Sex Female Chief Complaint And Reason For Visit No Information Plan Of Treatment Date Type Action Status Referral Ordered: River Abbasi MD -Allopathic & Osteopathic Physicians : Obstetrics & Gynecology (related to Iron deficiency) ordered Referral Ordered: Hematology (related to Iron deficiency) ordered Referral Ordered: Referrals: Hematology. Evaluate and treat ordered Referral Referred To: River Abbasi MD [address] [facility] [place], [place], [id number] Ordered: Referrals: Allopathic & Osteopathic Physicians : Obstetrics & Gynecology. River Abbasi MD. Evaluate and treat ordered Referral Ordered: SLEEP STUDY, ATTENDED ordered Referral Ordered: US EXAM, ABDOM, COMPLETE ordered Referral Ordered: MAMMOGRAM, SCREENING ordered History Of Present Illness Encounter Date Complaint History Of Prese nt Illness anxiety1 Pt has chronic a nxiety with mild depression Pt takes xanax PRn and doing ok Pt failed SSRI. Pt denies any suicidal or homicidal thought. Pt denies any crying spells breast nodule1 Pt has bilateral fibrocystic breast, Pt denies any breast pain. fatty liver1 Pt has mildly hi gh LFT .Pt denies abd pain or jaundice. Pt rarely drinks alcohol. Pt has fatty liver on ultrasound. Pt does not have viral hepatitis DVT1 Pt has provoked DVT with PE about one year ago after riding in a car for long time without movement. Pt has been on eliquis for the past 12 months. Her expenditure requisition clerk wants her to continue on eliquis until April of 2021. Pt denies any calf pain or chest pain or sob fatigue1 Pt c/o chronic f atigue Pt denies any sob or dizziness Pt had negative sleep study .Pt has normal thyroid level. Pt does have low iron saturation Pt has heavy period .Pt is on eliquis. Pt denies any heavy period prior to taking eliquis. Pt denies any GI bleeding postmeno Pt is postmeno P t feels severe fatigue. Pt does snore at night. Pt feels extremely tired in the morning and throughout the day. Pt denies any sob headache1 Pt has migraine headache chronically .Pt states that she has headache 2-3 per month now and she wants to stop taking topamax, which has been helping to prevent headache for her Pt denies any head injury or waking up at night with headache glucose Pt has borderlin e high glucose Pt denies any polyuria, polydipsia. LFT Pt has mildly hi gh LFT Pt denies abdominal pain or jaundice. Pt rarely drinks alcohol anemia1 Pt has mild anem ia. Pt denies any blood loss. thyroid Pt has hypothyro idism due to total thyrodectomy due to thyroid CA Her TFT is normal. TSH ok physical Pt needs annual physical. Pt has history of unknown type of left thyroid lobe malignant thyroid CA and s/p total thyroidectomy 2012. Pt denies any dysphagia or neck pain. Pt has history of unproved DVt right leg after prolonged car ride 8 months ago with PE. Pt has ascending aortic aneurysm around 4.2 cm accidently discovered during PE work up Pt sees cardiology who is prescribing eliquis since PE and told her to continue eliquis for now. Pt is being monitored by cardiology for the aneurysm. Pt also saw CT surgeon and she cardiac echo back in May and she had chest CTA back in May and she will do another CT next week for the ascending aortic aneurysm. Pt takes losartan for HTN by cardiology .Pt has chronic migraine headache .Pt takes topamax nightly for migraine prophylactic. Pt c/o throbbing headache with nausea and vomiting about once every 4 months now and she does think topamax and maxalt helps. Pt denies any head injury or waking up at night with headache. Pt has chronic anxiety and depression and insomnia. Pt only takes xanax PRn. pt denies any suicidal or homicidal thought .Pt does have crying spells Pt is still grieving from her since two years ago. Pt has dependent edema both leg for several months and she has been gaining weight also Pt states that swelling is worse at night and better in the morning Pt denies any sob or PND or orthopnea Instructions Date Instruction Additional Infor mation No Information Assessments Type Assessment Date No Information
--- OUTSIDE RECORDS SUMMARY | 2024-03-17 15:55 | XMS_ITS | Clinical Summary ---
Author Organization [facility] Address [address] [place] [address] Care Team Providers Care Protective Signal Installer Name Role Phone Carmelo Law MD Primary Care Provider [phone] Source Comments [facility],non-owned Affiliates and Associated Physician Practices is amultiple site organization consisting of ambulatory clinics and hospital sitesin [place], [place]. This disclosure is being madepursuant to the Care Everywhere program and may not contain all information available regarding this patient. Last updated 17.[facility] Allergies No known active allergies Medications * Be aware that medications may not be up to date on this document. Alwaysverify current medications with the patient. Medication Sig Dispensed Refills Start Date End Date Status ALPRAZolam (Xanax) 0.25 MG tablet Take 1 (one) tablet by mouth once daily as needed Active atorvastatin (Lipitor) 10 MG tablet Take 1 (one) tablet by mouth at bedtime 08/02/2022 Active celecoxib (CeleBREX) 100 MG capsule Take 1 (one) capsule by mouth 2 times daily as needed Active levothyroxine (Synthroid) 175 MCG tablet 200 mcg once daily 08/02/2022 Active losartan (Cozaar) 50 MG tablet Take 1 (one) tablet by mouth once daily Active metFORMIN ER 24hr (Glucophage XR) 500 MG tablet 2 times daily 05/08/2022 Active ondansetron, disintegrating, (Zofran ODT) 4 MG tablet Take 1 (one) tablet by mouth once daily as needed for Nausea/Vomitin g 03/21/2023 Active Qulipta 60 MG TABS Take 1 (one) tablet by mouth once daily as directed. 09/06/2023 Active glipiZIDE (Glucotrol) 5 MG tablet Take 1 (one) tablet by mouth 2 times daily with morning and evening meal 01/28/2024 Active Januvia 100 MG tablet Take 1 (one) tablet by mouth once daily 01/28/2024 Active Hepatitis B, CpG-Adjuvanted Vaccine, Adult (Heplisav-B) 20 MCG/0.5ML (HepB-Cpg) Inject 0.5 mL into muscle every 30 days for 2 doses 1 mL 02/20/2024 03/22/2024 Active Rybelsus 3 MG tablet Take 3 mg by mouth once daily 06/04/2023 02/20/2024 Discontinued( Clinical Decision) Active Problems Problem Noted Date Diagnosed Date NAFLD (nonalcoholic fatty liver disease) 023 Overview (09/04/2022): 08/14/22 Fibroscan CAP 310, LSM 23.0 kPa 09/04/2022 US + elastography fatty liver, LSM 6.55 kPa r/o compensated advanced CLD Encounters Date Type Department Care Team Description 02/20/2024 2:30 PM LIGHT BULB ASSEMBLER Office Visit [facility] - [address] [phone] Adrián Jimenez MD Shach, Ruth, PhD NAFLD (nonalcoholic fatty liver disease) (Primary Dx); Class 2 obesity due to excess calories without serious comorbidity with body mass index (BMI) of 39.0 to 39.9 in adult 02/20/2024 2:00 PM LIGHT BULB ASSEMBLER Office Visit [facility] - [address] [place] [phone] Adrián Jimenez MD Cirrhosis of liver without ascites, unspecified hepatic cirrhosis type (HCC) (Primary Dx); Metabolic dysfunction-associated steatohepatitis (MASH); Encounter for screening for other viral diseases; Anxiety; Class 2 obesity 02/20/2024 11:38 AM LIGHT BULB ASSEMBLER - 02/20/2024 11:59 PM LIGHT BULB ASSEMBLER Hospital Encounter [facility] [address] [place] [phone] Adrián Jimenez MD Discharge Disposition: Home or Self Care 02/20/2024 Travel 02/07/2024 Orders Only [facility] [place] [address] [facility] [place] [address] Adrián Jimenez MD from Last 3 Months Immunizations Name Administration Dates Next Due HEP B VACCINE 08/06/2023 HEP B VACCINE, ADULT 3 DOSE 09/04/2021, 2,10/31/2001 HEP B VACCINE, PED/ADOL 04/24/2023,03/25,04/24/2022,2021 PNEUMOCOCCAL PPSV23 01/24/2022 TDAP (7yrs+) 04/03/2021 Td (Adult), 2 Lf Tetanus Tox oid, Adsorbed, Pf 10/31/2001 Family History Medical History Relation Name Comments Other - Hepatic/Liver Neg Hx Social History Tobacco Use Types Packs/Day Years [...] Comments Blood Pressure 146/83 02/20/2024 1:51 PM LIGHT BULB ASSEMBLER Pulse 76 02/20/2024 1:51 PM LIGHT BULB ASSEMBLER Temperature 36.5 ??C (97.7 ??F) 02/20/2024 1:51 PM CS T Respiratory Rate 16 02/20/2024 1:51 PM LIGHT BULB ASSEMBLER Oxygen Saturation 99% 02/20/2024 1:51 PM LIGHT BULB ASSEMBLER Inhaled Oxygen Concentration - - Weight 118 kg (260 lb 3.2 oz) 02/20/2024 1:51 PM LIGHT BULB ASSEMBLER Height 172.7 cm (5' 8 ) 02/20/2024 1:51 PM LIGHT BULB ASSEMBLER Body Mass Index 39.56 02/20/2024 1:51 PM LIGHT BULB ASSEMBLER Plan of Treatment Upcoming Encounters Date Type Department Care Team (Latest Contact Info) Description 03/27/2024 1:45 PM LIGHT BULB ASSEMBLER Hospital Encounter [facility] ENDOSCOPY [address] [place] [phone] Adrián Jimenez MD [address] [place] [phone] Surgery General 03/27/2024 1:45 PM LIGHT BULB ASSEMBLER - 03/27/2024 2:15 PM LIGHT BULB ASSEMBLER Surgery [facility] ENDOSCOPY [facility] [place] [phone] Adrián Jimenez MD [address] [place] [phone] EGD w/ sam 08/13/2024 12:00 PM CDT Appointment [facility] CAT SCAN [address] [place] [phone] Adrián Jimenez MD [address] [place] [phone] 08/13/2024 1:00 PM CDT Office Visit [facility] - [place] [address] [place] [address] [place] [phone] Adrián Jimenez MD [address] [place] [phone] Scheduled Procedures Name Priority Associated Diagnoses Date/Ti me ESOPHAGOGASTRODUODENOSCOPY ( EGD) DIAGNOSTIC Cirrhosis of liver without ascites, unspecified hepatic cirrhosis type (HCC) 03/27/2024 1:45 PM LIGHT BULB ASSEMBLER Health Maintenance Due Date Last Done Comments COLOGUARD (AGES 45-75) - COLON CA SCREENING [address] COLONOGRAPHY - COLON CA SCREENING 1970 FIT - COLON CA SCREENING 1970 FLEX SIG - COLON CA SCREENING 1970 PAP SMEAR 1970 HIV SCREENING 08/24/1983 ZOSTER VACCINE (1 of 2) 2018 MAMMOGRAM 10/01/2021 10/02/2019, 10/02/2019 PNEUMOCOCCAL VACCINE 50+ (2 of 2 - PCV) 01/24/2023 01/24/2022 PNEUMOCOCCAL VACCINE (2 of 2 - PCV) 01/24/2023 01/24/2022 COVID-19 VACCINE ( - 2023- season) 2023 INFLUENZA VACCINE (#1) 2023 DEPRESSION SCREENING 02/19/2024 SCREENING FOR DIABETES 02/06/2027 , 08/12/2023, 01/30/2023, Additional history exists COLONOSCOPY - COLON CA SCREENING 08/30/2029 08/31/2019 Colorectal Cancer Screening 08/30/2029 DTAP/TDAP/TD VACCINES (2 - Td or Tdap) 04/03/2031 04/03/2021, 10/31/2001 HEPATITIS C SCREENING Completed 08/14/2022 HEPATITIS B VACCINE Completed 08/06/2023, 04/24/2023, 03/25/2023, Additional history exists HIB VACCINE Aged Out No longer eligi ble based on patient's age to complete this topic HPV VACCINE Aged Out No longer eligi ble based on patient's age to complete this topic MENINGOCOCCAL (Group B) VACCINE Aged Out No longer eligible based on patient's age to complete this topic MENINGOCOCCAL VACCINE Aged Out No irene kashif eligible based on patient's age to complete this topic Goals Goal Patient Goal Type Associated Problems Recent Progress Patient-Stated? Author Medication Management General On track( 025 1:58 PM LIGHT BULB ASSEMBLER) Didi Cali, RN Note: Expected end date: ongoing Interventions: Take all medications as prescribed Let your doctor know right away about any changes in your medications Make sure to request a refill of your medication at least one week prior to your last dose Procedures Procedure Name Priority Date/Time Associated Diagnosis Comments US ABDOMEN LIMITED Routine 02/20/2024 12 :06 PM LIGHT BULB ASSEMBLER Cirrhosis of liver without ascites, unspecified hepatic cirrhosis type (HCC) PT-INR 02/07/2024 10:04 AM LIGHT BULB ASSEMBLER ALPHA FETOPROTEIN BLOOD TUMOR MARKER 02/07/2024 10:01 AM LIGHT BULB ASSEMBLER HEPATITIS B SURFACE ANTIBODY 02/07/2024 10:01 AM LIGHT BULB ASSEMBLER CBC W AUTO DIFFERENTIAL 02/07/2024 10:01 AM LIGHT BULB ASSEMBLER COMPREHENSIVE METABOLIC PANEL 02/07/2024 10:01 AM LIGHT BULB ASSEMBLER BILIRUBIN DIRECT 02/07/2024 10:0 1 AM LIGHT BULB ASSEMBLER HEPATITIS C AB W/RFLX TO HCV RNA QN PCR Routine 08/14/2022 1:36 PM CDT Elevated liver enzymes from Last 3 Months or Most Recently Relevant to Health Maintenance Results * US ABDOMEN LIMITED (02/20/2024 12:06 PM LIGHT BULB ASSEMBLER) Anatomical Region Laterality Modality Abdomen Ultrasound 02/20/2024 1:18 PM LIGHT BULB ASSEMBLER Impressions 02/20/2024 3:27 PM LIGHT BULB ASSEMBLER Impression: 1.Diffuse hepatic steatosis without discrete hepatic observation. 2.Liver Visualization Score B: Moderate limitations. 3.US-1 Negative. Repeat surveillance US in 6 months. 4.Status post cholecystectomy. Report drafted by Asif Mandujano (resident). IVi MD have personally reviewed and interpreted this examination/study. > Interpreting Provider: Vi Gleason MD on 02/20/2024 3:27 PM Narrative 02/20/2024 3:27 PM LIGHT BULB ASSEMBLER PROCEDURE: ??US ABDOMEN LIMITED, DATE/TIME OF EXAM: ??02/20/2024 12:08 PM, LOCATION ??[facility] INDICATION: K74.60: Cirrhosis of liver without ascites, [...] DATE/TIME OF EXAM: 02/20/2024 12:08 PM, LOCATION [facility] INDICATION: K74.60: Cirrhosis of liver without ascites, [...] ORDERABLES * (ABNORMAL) PT-INR (02/07/2024 10:04 AM LIGHT BULB ASSEMBLER) INR 1.1 [facility] Comment: Reference Range ? 0.9-1.1 Moderate-intensity Warfarin Therapy 2.0-3.0 Higher-intensity Warfarin Therapy ?? 3.0-4.0 PT 11.8(H) 9.0 - 11.5 sec [facility] Comment: For additional information, please refer to http://education.[employer]/faq/GSX704 (This link is being provided for informational/ educational purposes only.) Test Performed at: [employer] [address] ??[phone] JERRICA NORWOOD MD 02/07/2024 10:0 4 AM LIGHT BULB ASSEMBLER 02/07/2024 10:04 AM LIGHT BULB ASSEMBLER Adrián Jimenez MD LAB - COAGULATION OR DERABLES [address] [address] * ALPHA FETOPROTEIN BLOOD TUMOR MARKER (02/07/2024 10:01 AM LIGHT BULB ASSEMBLER) Alpha-Fetoprotei n Tumor Marker 4.2 ng/mL [facility] [...] or absence of disease. Test Performed at: [facility] [address] [place] [address] ??[phone] BLANCA ARROYO 02/07/2024 10:0 1 AM LIGHT BULB ASSEMBLER 02/07/2024 10:02 AM LIGHT BULB ASSEMBLER Adrián Jimenez MD LAB - CHEMISTRY ORDE RABLES Performing Organization Address [facility]/[employer] Phone Number [facility] [address] [place] [address] * CBC WITH DIFFERENTIAL (02/07/2024 10:01 AM LIGHT BULB ASSEMBLER) Pathologist [facility] White Blood Cell Count 4.8 3.8 - [...] 1.3 % [facility] Comment: Test Performed at: [facility] [address] [place], [place] ??[phone] JERRICA NORWOOD MD 02/07/2024 10:0 1 AM LIGHT BULB ASSEMBLER 02/07/2024 10:02 AM LIGHT BULB ASSEMBLER Adrián Jimenez MD LAB - HEMATOLOGY ORD ERABLES Performing Organization Address [facility] Phone Number [facility] [address] [place] [address] * (ABNORMAL) COMPREHENSIVE METABOLIC PANEL (02/07/2024 10:01 AM LIGHT BULB ASSEMBLER) Glucose 142(H) 65 - 99 mg/dL [facility] [...] mL/min/1. 73m2 [facility] BUN/Creatinine Ratio SEE NOTE: (calc) [facility] Comment: ?? Not Reported: BUN [...] 29 U/L [facility] Comment: Test Performed at: [facility] [id number] [place] [address] ??[phone] JERRICA NORWOOD MD 02/07/2024 10:0 1 AM LIGHT BULB ASSEMBLER 02/07/2024 10:02 AM LIGHT BULB ASSEMBLER Adrián Jimenez MD LAB - CHEMISTRY ANSHUL CAMARILLO [facility] [address] [place] [address] * HEPATITIS B SURFACE ANTIBODY (02/07/2024 10:01 AM LIGHT BULB ASSEMBLER) Pathologist [facility] Hepatitis B Virus Surface Antibody NON-REACTI VE NON-REACT HERNANDEZ [facility] Comment: Test Performed at: [employer] [facility] [address] [place], [place] ??[phone] JERRICA NORWOOD MD 02/07/2024 10:0 1 AM LIGHT BULB ASSEMBLER 02/07/2024 10:02 AM LIGHT BULB ASSEMBLER Adrián Jimenez MD LAB - CHEMISTRY ANSHUL KHANMERLENE Performing Organization Address [facility] de Phone Number [address] [address] * BILIRUBIN DIRECT (02/07/2024 10:01 AM LIGHT BULB ASSEMBLER) Bilirubin Direct 0.2 < OR = 0.2 mg/dL [facility] Comment: Test Performed at: [facility] [address] [place] [address] ??[phone] JERRICA NORWOOD MD 02/07/2024 10:0 1 AM LIGHT BULB ASSEMBLER 02/07/2024 10:02 AM LIGHT BULB ASSEMBLER Adrián Jimenez MD LAB - CHEMISTRY ANSHUL CAMARILLO Performing Organization Address [facility] de Phone Number [facility] [phone] [place] [address] * HEPATITIS C AB W/RFLX TO HCV RNA QN PCR (08/14/2022 1:36 PM CDT) Pathologist [facility] Hepatitis C Antibody NON-REACTI VE NON-REACT HERNANDEZ [facility] Comment: HCV antibody was non-reactive. There is no laboratory evidence of HCV infection. In most cases, no further action is required. However, if recent HCV exposure is suspected, a test for HCV RNA (test code 94733) is suggested. For additional information please refer to http://education.[employer]/faq/PYT03r7 (This link is being provided for informational/ educational purposes only.) REPORT COMMENT: FASTING:YES Test Performed at: [facility] [address] [place] [address] ??[phone] JERRICA NORWOOD MD Blood BLOOD SPECIMEN / Unknown 08/14/2022 1:36 PM CDT 08/14/2022 1:36 PM CDT Adrián Jimenez MD LAB - CHEMISTRY ANSHUL CAMARILLO [facility] Organization Address City/State/ZIP Co de Phone Number [facility] [address] [place] [address] from Last 3 Months or Most Recently Relevant to Health Maintenance Care Teams Protective Signal Installer Relationship Specialty Start Date End Date Carmelo Law MD [address] [place] [address] PCP - General Family Medicine 06/26/22
--- OUTSIDE RECORDS SUMMARY | 2024-03-17 15:55 | XMS_ITS | Referral Summary ---
Author Organization [facility] Address [address] [place] [address] Care Team Providers Care Marketing Researcher Name Role Phone Carmelo Law MD Primary Care Provider Encounters Date Type Department Care Team Description 01/23/2024 12:17 PM MANUFACTURING QUALITY TECHNICIAN - 01/23/2024 11:59 PM MANUFACTURING QUALITY TECHNICIAN Hospital [facility], Room R Discharge Disposition: Discharge to home or self care 12/17/2023 11:43 AM CDT - 12/17/2023 11:59 PM CDT Hospital Encounter [facility] [address] [phone] Aneurysm of ascending aorta without rupture (HCC) Discharge Disposition: Discharge to home or self care 12/17/2023 1:00 PM CDT Office Visit [facility] Surgery [address] [facility] [address] [place] [address] Cedric Mejia MD Aneurysm of ascending aorta without rupture (HCC) (Primary Dx); Elevated blood pressure reading in office without diagnosis of hypertension from Last 3 Months Allergies No known active allergies Medications topiramate [...] mucosa. Will refer for rectal EUS at [facility] to further evaluate. Irritable bowel syndrome wit [...] (04/01/2019): Added automatically from request for surgery [id number] Former smoker 03/09/2019 Other chest pain 03/09/2019 Abnormal glucose 03/09/2019 Social History Tobacco Use Types Packs/Day Years [...] on file Legal Sex Female 8:20 AM MANUFACTURING QUALITY TECHNICIAN Gender Identity Female 12/06/2020 9:10 AM CDT Sexual Orientation Straight 03/07/2019 5: 53 PM MANUFACTURING QUALITY TECHNICIAN Last Filed Vital Signs Vital Sign Reading Time Taken Comments Blood Pressure 118/97 12/17/2023 1:23 PM CDT Pulse 81 12/17/2023 1:23 PM CDT Temperature 36.7 ??C (98 ??F) 01/25/2022 5:39 PM MANUFACTURING QUALITY TECHNICIAN Respiratory Rate 16 12/18/2022 1:06 PM CDT Oxygen Saturation 98% 12/18/2022 1:06 PM CDT Inhaled Oxygen Concentration - - Weight 117.9 kg (260 lb) 12/18/2022 1:06 PM CDT Height 172.7 cm (5' 8 ) 12/18/2022 1:06 PM CDT Body Mass Index 39.53 12/18/2022 1:06 PM CDT Plan of Treatment Not on file Procedures Procedure Name Priority Date/Time Associated Diagnosis [...] Sheldon Henriquez M.D. us Cedric Mejia MD IMG CT PROCEDURES Final Resu lt * POCT creatinine for contrast evaluation (12/17/2023 12:23 PM CDT) Creatinine, POC 0.8 0.6 - 1.3 mg/dL Blood 12/17/2023 12:2 3 PM CDT us Cedric Mejia MD POINT OF CARE TEST [...] West MD - 08/31/2019 8:58 AM CDT [facility] Patient Name: Gracia Bray Procedure Date: 08/31/2019 8:58 AM Date of : 1970 Admit Type: Outpatient Age: 49 Gender: Female Attending MD: Hattie West M.D. Room: [facility] Note Status: Finalized [...] passed under direct vision.The Pediatric Colonoscope [id number]-[id number] was introduced through the anus and advanced [...] 8:58 AM Procedure Code(s): --- Professional --- 51737, Colonoscopy, flexible; with removal of tumor(s), polyp(s), or other lesion(s) by snare technique 60321, Colonoscopy, flexible; with directed submucosal injection(s),any substance 40322, 59, Colonoscopy, flexible; with biopsy, single or multiple Diagnosis Code(s): --- Professional --- Z12.11, Encounter for screening for malignant neoplasm of colon D12.5, Benign neoplasm of sigmoid colon K64.8, Other hemorrhoids K63.89, Other specified diseases of intestine K57.30, Diverticulosis of large intestine without perforation orabscess without bleeding CPT copyright 2017 [employer]. All rights reserved. The codes documented in this report are preliminary and upon cost reduction engineer reviewmay be revised to meet current compliance requirements. Recognized by the [employer] for promoting quality in endoscopy Hattie West MD ENDOSCOPY PROCEDURES Final Result from Last 3 Months or Most Recently Relevant to Health Maintenance Insurance Advance Directives For more information, please contact: [phone] * Full Code (Latest Code Status on [...] 8:54 AM 08/31/2019 3:08 PM Care Teams Marketing Researcher Relationship Specialty Start Date End Date Carmelo Law MD [address] [place] [address] PCP - General Family Medicine 12/06/21
--- OUTSIDE RECORDS SUMMARY | 2024-03-17 15:55 | XMS_ITS | Referral Summary ---
Author Organization [facility] Address [address] [place] [address] Care Team Providers Care Electrical Assembly Technician Name Role Phone Carmelo Law MD Primary Care Provider [phone] Source Comments [facility],non-owned Affiliates and Associated Physician Practices is amultiple site organization consisting of ambulatory clinics and hospital sitesin [place], [place], [place] and [place]. This disclosure is being madepursuant to the Care Everywhere program and may not contain all information available regarding this patient. Last updated 17.[facility] Encounters Date Type Department Care Team Description 02/20/2024 Travel 02/20/2024 2:30 PM SURGERY CENTER ADMINISTRATOR Office Visit [facility] - [facility] [address] [place] [address] Adrián Jimenez MD Shach, Ruth, PhD NAFLD (nonalcoholic fatty liver disease) (Primary Dx); Class 2 obesity due to excess calories without serious comorbidity with body mass index (BMI) of 39.0 to 39.9 in adult 02/20/2024 2:00 PM SURGERY CENTER ADMINISTRATOR Office Visit [facility] - GI [address] [place] [address] Adrián Jimenez MD Cirrhosis of liver without ascites, unspecified hepatic cirrhosis type (HCC) (Primary Dx); Metabolic dysfunction-associated steatohepatitis (MASH); Encounter for screening for other viral diseases; Anxiety; Class 2 obesity 02/20/2024 11:38 AM SURGERY CENTER ADMINISTRATOR - 02/20/2024 11:59 PM SURGERY CENTER ADMINISTRATOR Hospital Encounter [facility] [address] [place] [address] Adrián Jimenez MD Discharge Disposition: Home or Self Care 02/07/2024 Orders Only [facility] - [facility] [address] [facility] [place] [address] Adrián Jimenez MD from Last 3 Months Allergies No known active allergies Medications * [...] LSM 6.55 kPa r/o compensated advanced CLD Immunizations Name Administration Dates Next Due HEP B VACCINE 08/06/2023 HEP B VACCINE, ADULT 3 DOSE 09/04/2021, 2,10/31/2001 HEP B VACCINE, PED/ADOL 04/24/2023,03/25,04/24/2022,2021 PNEUMOCOCCAL PPSV23 01/24/2022 TDAP (7yrs+) 04/03/2021 Td (Adult), 2 Lf Tetanus Tox oid, Adsorbed, Pf 10/31/2001 Social History Tobacco Use Types Packs/Day Years [...] Comments Blood Pressure 146/83 02/20/2024 1:51 PM SURGERY CENTER ADMINISTRATOR Pulse 76 02/20/2024 1:51 PM SURGERY CENTER ADMINISTRATOR Temperature 36.5 ??C (97.7 ??F) 02/20/2024 1:51 PM CS T Respiratory Rate 16 02/20/2024 1:51 PM SURGERY CENTER ADMINISTRATOR Oxygen Saturation 99% 02/20/2024 1:51 PM SURGERY CENTER ADMINISTRATOR Inhaled Oxygen Concentration - - Weight 118 kg (260 lb 3.2 oz) 02/20/2024 1:51 PM SURGERY CENTER ADMINISTRATOR Height 172.7 cm (5' 8 ) 02/20/2024 1:51 PM SURGERY CENTER ADMINISTRATOR Body Mass Index 39.56 02/20/2024 1:51 PM SURGERY CENTER ADMINISTRATOR Functional Status Functional Status Response Date of Assess ment Is person deaf or have serious hearing difficult y? No 10/16/2022 Is person blind or have serious difficulty seein g? No 10/16/2022 Does person have serious dif ficulty walking/climbing stairs? No 10/16/2022 Does person have difficulty dressing/bathing? No 10/16/2022 Does person have difficulty doing errands alone? No 10/16/2022 Cognitive Status Response Date of Assessm ent Does person have difficulty concentrating/remembering/making decisions? No 10/16/2022 Plan of Treatment Upcoming Encounters Date Type Department Care Team (Latest Contact Info) Description 03/27/2024 1:45 PM SURGERY CENTER ADMINISTRATOR Hospital Encounter [facility] ENDOSCOPY [address] [place] [phone] Adrián Jimenez MD [address] [place] [phone] Surgery General 03/27/2024 1:45 PM SURGERY CENTER ADMINISTRATOR - 03/27/2024 2:15 PM SURGERY CENTER ADMINISTRATOR Surgery [facility] [address] [place] [phone] Adrián Jimenez MD [address] [place] [phone] EGD w/ sam 08/13/2024 12:00 PM CDT Appointment [facility] CAT SCAN [address] [place] [phone] Adrián Jimenez MD [address] [place] [phone] 08/13/2024 1:00 PM CDT Office Visit [facility] - GI [address] [facility] [place] [phone] Adrián Jimenez MD [address] [place] [phone] Scheduled Procedures Name Priority Associated Diagnoses Date/Ti me ESOPHAGOGASTRODUODENOSCOPY ( EGD) DIAGNOSTIC Cirrhosis of liver without ascites, unspecified hepatic cirrhosis type (HCC) 03/27/2024 1:45 PM SURGERY CENTER ADMINISTRATOR Goals Goal Patient Goal Type Associated Problems Recent Progress Patient-Stated? Author Medication Management General On track( 025 1:58 PM SURGERY CENTER ADMINISTRATOR) Didi Cali, RN Note: Expected end date: ongoing Interventions: Take all medications as prescribed Let your doctor know right away about any changes in your medications Make sure to request a refill of your medication at least one week prior to your last dose Procedures Procedure Name Priority Date/Time Associated Diagnosis Comments US ABDOMEN LIMITED Routine 02/20/2024 12 :06 PM SURGERY CENTER ADMINISTRATOR Cirrhosis of liver without ascites, unspecified hepatic cirrhosis type (HCC) PT-INR 02/07/2024 10:04 AM SURGERY CENTER ADMINISTRATOR ALPHA FETOPROTEIN BLOOD TUMOR MARKER 02/07/2024 10:01 AM SURGERY CENTER ADMINISTRATOR HEPATITIS B SURFACE ANTIBODY 02/07/2024 10:01 AM SURGERY CENTER ADMINISTRATOR CBC W AUTO DIFFERENTIAL 02/07/2024 10:01 AM SURGERY CENTER ADMINISTRATOR COMPREHENSIVE METABOLIC PANEL 02/07/2024 10:01 AM SURGERY CENTER ADMINISTRATOR BILIRUBIN DIRECT 02/07/2024 10:0 1 AM SURGERY CENTER ADMINISTRATOR HEPATITIS C AB W/RFLX TO HCV RNA QN PCR Routine 08/14/2022 1:36 PM CDT Elevated liver enzymes from Last 3 Months or Most Recently Relevant to Health Maintenance Results * US ABDOMEN LIMITED (02/20/2024 12:06 PM SURGERY CENTER ADMINISTRATOR) Anatomical Region Laterality Modality Abdomen Ultrasound 02/20/2024 1:18 PM SURGERY CENTER ADMINISTRATOR Impressions 02/20/2024 3:27 PM SURGERY CENTER ADMINISTRATOR Impression: 1.Diffuse hepatic steatosis without discrete hepatic observation. 2.Liver Visualization Score B: Moderate limitations. 3.US-1 Negative. Repeat surveillance US in 6 months. 4.Status post cholecystectomy. Report drafted by Asif Mandujano (resident). Vi Bonilla MD have personally reviewed and interpreted this examination/study. > Interpreting Provider: Vi Gleason MD on 02/20/2024 3:27 PM Narrative 02/20/2024 3:27 PM SURGERY CENTER ADMINISTRATOR PROCEDURE: ??US ABDOMEN LIMITED, DATE/TIME OF EXAM: ??02/20/2024 12:08 PM, LOCATION ??[facility] INDICATION: K74.60: Cirrhosis of liver without ascites, [...] DATE/TIME OF EXAM: 02/20/2024 12:08 PM, LOCATION [facility] INDICATION: K74.60: Cirrhosis of liver without ascites, [...] ORDERABLES * (ABNORMAL) PT-INR (02/07/2024 10:04 AM SURGERY CENTER ADMINISTRATOR) INR 1.1 [facility] Comment: Reference Range ? 0.9-1.1 Moderate-intensity Warfarin Therapy 2.0-3.0 Higher-intensity Warfarin Therapy ?? 3.0-4.0 PT 11.8(H) 9.0 - 11.5 sec [facility] Comment: For additional information, please refer to http://education.[employer]io/faq/XFA766 (This link is being provided for informational/ educational purposes only.) Test Performed at: [facility] ??[phone] JERRICA NORWOOD MD 02/07/2024 10:0 4 AM SURGERY CENTER ADMINISTRATOR 02/07/2024 10:04 AM SURGERY CENTER ADMINISTRATOR Adrián Jimenez MD LAB - COAGULATION OR DERABLES Performing Organization Address [facility] de Phone Number [facility] [address] [place] [address] * ALPHA FETOPROTEIN BLOOD TUMOR MARKER (02/07/2024 10:01 AM SURGERY CENTER ADMINISTRATOR) [facility] Alpha-Fetoprotei n Tumor Marker 4.2 ng/mL [facility] [...] or absence of disease. Test Performed at: [facility] [address] ??[phone] BLANCA ARROYO 02/07/2024 10:0 1 AM SURGERY CENTER ADMINISTRATOR 02/07/2024 10:02 AM SURGERY CENTER ADMINISTRATOR Adrián Jimenez MD LAB - CHEMISTRY ANSHUL CAMARILLO Performing Organization Address [facility] de Phone Number [facility] [address] [place] [address] * CBC WITH DIFFERENTIAL (02/07/2024 10:01 AM SURGERY CENTER ADMINISTRATOR) [facility] White Blood Cell Count 4.8 3.8 - [...] 1.3 % [facility] Comment: Test Performed at: [facility] [address] [place] ??[address] JERRICA NORWOOD MD 02/07/2024 10:0 1 AM SURGERY CENTER ADMINISTRATOR 02/07/2024 10:02 AM SURGERY CENTER ADMINISTRATOR Adrián Jimenez MD LAB - HEMATOLOGY ORD ERABLES [facility] [address] [place] [address] * (ABNORMAL) COMPREHENSIVE METABOLIC PANEL (02/07/2024 10:01 AM SURGERY CENTER ADMINISTRATOR) Glucose 142(H) 65 - 99 mg/dL [facility] [...] [facility] BUN/Creatinine Ratio SEE NOTE: 6 - 22 (calc) [facility] Comment: ?? Not Reported: BUN [...] 29 U/L [facility] Comment: Test Performed at: [employer] [place] ??[address] JERRICA NORWOOD MD 02/07/2024 10:0 1 AM SURGERY CENTER ADMINISTRATOR 02/07/2024 10:02 AM SURGERY CENTER ADMINISTRATOR Adrián Jimenez MD LAB - CHEMISTRY ANSHUL CAMARILLO Performing Organization Address [facility] de Phone Number [facility] [id number] [place] [address] * HEPATITIS B SURFACE ANTIBODY (02/07/2024 10:01 AM SURGERY CENTER ADMINISTRATOR) Hepatitis B Virus Surface Antibody NON-REACTI VE NON-REACT HERNANDEZ [facility] Comment: Test Performed at: [facility] [address] [place] [address] ??[phone] JERRICA NORWOOD MD 02/07/2024 10:0 1 AM SURGERY CENTER ADMINISTRATOR 02/07/2024 10:02 AM SURGERY CENTER ADMINISTRATOR Adrián Jimenez MD LAB - CHEMISTRY ANSHUL CAMARILLO Performing Organization Address [facility] [employer] de Phone Number [facility] [address] [place] [address] * BILIRUBIN DIRECT (02/07/2024 10:01 AM SURGERY CENTER ADMINISTRATOR) Bilirubin Direct 0.2 < OR = 0.2 mg/dL [facility] Comment: Test Performed at: [facility] [address] [place] ??[address] JERRICA NORWOOD MD 02/07/2024 10:0 1 AM SURGERY CENTER ADMINISTRATOR 02/07/2024 10:02 AM SURGERY CENTER ADMINISTRATOR Adrián Jimenez MD LAB - CHEMISTRY ANSHUL CAMARILLO Performing Organization Address [facility] [employer] de Phone Number [facility] [address] [place] [address] * HEPATITIS C AB W/RFLX TO HCV RNA QN PCR (08/14/2022 1:36 PM CDT) Hepatitis C Antibody NON-REACTI VE NON-REACT HERNANDEZ [facility] Comment: HCV antibody was non-reactive. There is no laboratory evidence of HCV infection. In most cases, no further action is required. However, if recent HCV exposure is suspected, a test for HCV RNA (test code 08741) is suggested. For additional information please refer to http://education.[employer]/faq/JZU56w5 (This link is being provided for informational/ educational purposes only.) REPORT COMMENT: FASTING:YES Test Performed at: [facility] [address] [place], [place] ??[phone] JERRICA NORWOOD MD Blood BLOOD SPECIMEN / Unknown 08/14/2022 1:36 PM CDT 08/14/2022 1:36 PM CDT Adrián Jimenez MD LAB - CHEMISTRY ANSHUL CAMARILLO [facility] Organization Address City/State/ZIP Co de Phone Number [facility] [address] [place] [address] from Last 3 Months or Most Recently Relevant to Health Maintenance Care Teams Electrical Assembly Technician Relationship Specialty Start Date End Date Carmelo Law MD [address] [place] [phone] PCP - General Family Medicine 06/26/22
== END 2024-03-17 15:41 | disposition home or self-care (01) ==
PROVIDERS: PCP Family Medicine; Visit Provider Nurse Practitioner Family
DX: E89.0 Postprocedural hypothyroidism (principal); Z85.850 Personal history of malignant neoplasm of thyroid
CPT/HCPCS: 76536